=== PATIENT | male | born 1965 | race Caucasian/White ===

== ENCOUNTER 2023-04-22 00:39 | Inpatient (IN) | payer OTHER, SELFPAY ==
[2023-04-21] VITALS (25 sets, daily range): BP systolic 111–188; BP diastolic 80–144; BMI 53.0
[2023-04-21 14:51] LABS: % Basophils 0.8 % (0-2); % Eosinophils 2.2 % (0-6); % Immature Granulocytes 0.3 % (0-0.5); % Lymphocytes 14.9 % (20.5-51.1); % Monocytes 9.9 % (1.7-9.3); % Neutrophils 71.9 % (42.2-75.2); Absolute Basophils 0.1 10^3/uL (0-0.2); Absolute Eosinophils 0.2 10^3/uL (0-0.7); Absolute Lymphocytes 1.1 10^3/uL (1.2-3.4); Absolute Monocytes 0.7 10^3/uL (0.1-0.6); Absolute Neutrophils 5.3 10^3/uL (1.4-6.5); Hematocrit 38.8 % (39.0-52.0); Hemoglobin 13.1 g/dL (13.0-18.0); Mean Corp Hgb Conc. 33.8 g/dL (33.0-37.0); Mean Corpuscular Hgb 30.8 pg (27.0-31.0); Mean Corpuscular Volume 91.1 fL (80.0-94.0); Mean Platelet Volume 9.6 fL (7.4-10.4); Nucleated Red Blood Cells % 0 % (-); Platelet Count 294 10^3/uL (130-400); Red Blood Cell Count 4.26 10^6/uL (4.70-6.10); Red Cell Dist. Width 14.4 % (11.5-14.5); White Blood Cell Count 7.3 10^3/uL (4.8-10.8)
[2023-04-21 15:05] LABS: ALT (SGPT) 22 U/L (0-50); AST (SGOT) 26 U/L (17-59); Albumin 4.1 g/dl (3.5-5.0); Alkaline Phosphatase 225 U/L (38-126); Blood Urea Nitrogen 17 mg/dl (9-20); Calcium 9.1 mg/dl (8.4-10.2); Carbon Dioxide 28 mmol/L (22-30); Chloride 103 mmol/L (98-107); Glucose 117 mg/dl (70-99); Potassium 4.4 mmol/L (3.5-5.1); Sodium 135 mmol/L (135-145); Total Bilirubin 0.7 mg/dl (0.2-1.3); Total Protein 6.8 g/dl (6.3-8.2); eGFR > 60.00
[2023-04-21 15:35] LABS: TSH Reflex To Free T4 2.25 uIU/ml (0.47-4.68)
--- NOTE | 2023-04-21 17:14 | ED.GENMED ---
History of Present Illness
<AMISHA Acosta - Last Filed: 04/21/23 23:19>
General
Chief Complaint: Heart Rate Problem
Source: patient and spouse
Exam Limitations: none
Time Seen by Provider: 04/21/23 17:12
Nursing documentation reviewed up to this point in time: agreed with
Travel History
Have you had any contact with someone who has COVID-19?: No
Do you have any symptoms of coronavirus? Fever > 100 degrees, chills, cough, shortness of breath, sore throat, loss of taste or smell, muscle aches, or headache?: Yes
Symptoms:: SOB
History of Present Illness
History of Present Illness:
Patient is a 58-year-old male with past medical history of hypertension, presents to the ER for evaluation. Patient saw his family doctor yesterday was recommended to come to the ER yesterday. He has felt short of breath with exertion for the past
3-4 weeks. He was found to be in A-fib yesterday. He was not aware that he was in A-fib. He did not feel palpitations.
He denies any chest pain.
He is taking his metoprolol as well as clonidine for hypertension and is on Lasix 20 mg every day.
Patient also complains of a chronic wound to right lower leg. 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
Past History
<AMISHA Acosta - Last Filed: 04/21/23 23:19>
Past History
ED Past Medical History: GERD
ED Past Surgical History: Other
Social History
Tobacco: Non-smoker
Drug: None
Personal:
Living: with family
Employment: Employed
Family History
Family History: Other
Review of Systems
<AMISHA Acosta - Last Filed: 04/21/23 23:19>
Review of Systems
Allergies reviewed?: Yes
Other source history: family
All Other Systems: ROS reviewed and negative except as documented in HPI and ROS
Constitutional: Reports no symptoms; Denies fever, fatigue or chills
EENT: Reports no symptoms
Respiratory: Reports trouble breathing; Denies cough
Cardiac: Reports no symptoms; Denies chest pain, diaphoresis, palpitations or syncope
ABD/GI: Reports no symptoms
: Reports no symptoms
Musculoskeletal: Reports other (open wound to leg )
Skin: Reports no symptoms
Neurological: Reports no symptoms
Psychiatric: Reports no symptoms
Phy Exam
<AMISHA Acosta - Last Filed: 04/21/23 23:19>
General Physical Exam
General Presentation: no apparent distress
General age: appears stated age
General Skin: warm and dry
General Habitus: obese
General Mental: alert
General Hydration: appears well hydrated
Cardiovascular Exam
Cardiovascular Exam: irregularly irregular
Pulmonary Exam
Pulmonary Exam: lungs clear and no respiratory distress
Neurological Exam
Neurological Exam: alert and oriented x3
Musculoskeletal Exam
Musculoskeletal Exam: other (Bilateral lower extremity swelling. Right lateral lower leg with obvious open wound with purulent drainage with surrounding erythema)
Skin Exam
Skin Exam: normal color and warm/dry
Psychiatric Exam
Psychiatric Exam: normal mood/affect
Course
<AMISHA Acosta - Last Filed: 04/21/23 23:19>
Orders/Labs/Results
Orders:
Orders
04/21/23 14:22
Electrocardiogram (*1) Urgent
Reason for Study: Atrial Fibrillation
04/21/23 14:23
EKG- Treatment ONCE
04/21/23 14:40
Complete Blood Count/With Diff Urgent
Comprehensive Metabolic Panel Urgent
TSH Reflex To Free T4 Urgent
04/21/23 17:24
Add On- LAB Urgent
Tests Added?: cardiac BNP
04/21/23 17:28
Diltiazem HCl [Cardizem] 20 mg IV NOW STA
04/21/23 17:30
Diltiazem 125 mg/125 ml Nss [Cardizem] 125 mg in 125 ml IV PER PROTOCOL
Initial dose in mg/hr, then titrate:: 5
Titrate to keep:: Heart rate 80-100 bpm
Titrate by mg/hr:: 5 mg/hr
Frequency of titrations (minutes):: 15
Maximum dose in mg/hr:: 15
04/21/23 17:37
NT-proBNP Urgent
04/21/23 18:54
Lactic Acid Q4H
Comment: CANCEL 2nd LACTIC ACID IF 1st LACTIC ACID IS LESS THAN 2
Blood Culture Q30M
MARIA ISABEL Source: Blood/Venous
Specimen Description:
Blood Culture Q30M
MARIA ISABEL Source: Blood/Venous
Specimen Description:
04/21/23 19:05
Wound Culture [Wound/Abscess/Other Culture] Urgent
MARIA ISABEL Source: Leg
Specimen Description: Right
Date Specimen was Collected: 04/21/23
Time Specimen was Collected: 19:03
04/21/23 21:58
Heparin 4,000 units IV NOW STA
Nursing to Place Non Medication Order As Directed
Physician Order: PTT 6 hours after initial start of Heparin infusion
04/21/23 22:00
Heparin [id number] Units/250 ml 25,000 units in 250 ml IV PER PROTOCOL
Weight to be used for heparin protocol in kilograms (kg):: 177.2
Protocol:: Cardiac Tx/Acute Coronary
PTT Goal Range to be used:: PTT 73 to 111 seconds
Order type:: Initial
INITIAL Infusion Dose (UNITS/KG/hr) & then follow protocol:: 12 units/kg/hr
Infusion Dose in UNITS/hr & then follow protocol (UNITS/hr):: 1,000
INFUSION RATE in mL/hr & then follow protocol (mL/hr):: 10
PTT less than or equal to 64 seconds:: Increase rate by 200 units/hr (+ 2 mL/hr)
PTT 64.1 to 72.9 seconds:: Increase rate by 100 units/hr (+ 1 mL/hr)
PTT 73 to 111 seconds:: Target Range. No change in rate.
PTT 111.1 to 130.9 seconds:: Decrease rate by 100 units/hr (- 1 mL/hr)
PTT 131 to 199.9 seconds:: HOLD for 1 hr. Then decrease rate by 200 units/hr (- 2 mL/hr)
PTT greater than or equal to 200 seconds:: HOLD for 2 hrs & Notify Provider. Then decrease by 200 units/hr (-
2 mL/hr)
Lab follow-up:: Each change, PTT q6h until 2 consecutive are therapeutic. Then PTT
daily.
04/21/23 22:04
PTT Urgent
Comment: Obtain baseline before beginning heparin infusion if not already collected
04/21/23 22:06
Chest [CR Chest - 2 Views ] Urgent
Comment:
Reason For Exam: SOB
04/21/23 22:55
Acetaminophen [Tylenol] 650 mg PO NOW STA
Abnormal Lab Results
04/21/23
14:40
RBC 4.26 L 10^6/uL
(4.70-6.10)
Hct 38.8 L %
(39.0-52.0)
Absolute Lymphs (auto) 1.1 L 10^3/uL
(1.2-3.4)
Absolute Monos (auto) 0.7 H 10^3/uL
(0.1-0.6)
Lymphocytes % 14.9 L %
(20.5-51.1)
Monocytes % 9.9 H %
(1.7-9.3)
Glucose 117 H mg/dl
(70-99)
Alkaline Phosphatase 225 H U/L
(38-126)
04/21/23 14:40
04/21/23 14:40
Vital Signs
Initial and Last Documented VS:
Initial Vital Signs
Temp Pulse Resp BP Pulse Ox
98.4 F 122 18 178/99 93
04/21/23 14:18 04/21/23 14:18 04/21/23 14:18 04/21/23 14:18 04/21/23 14:18
Last Documented Vital Signs
Temp Pulse Resp BP Pulse Ox
98.4 F 122 29 133/86 94
04/21/23 14:18 04/21/23 21:00 04/21/23 21:30 04/21/23 21:30 04/21/23 21:30
Dial Maker consulted with Physician
Dial Maker consulted with physician?: Yes
Name of Physician Consulted: David
<Andrey Hernandez, DO - Last Filed: 04/21/23 18:08>
Orders/Labs/Results
Orders:
Orders
04/21/23 14:22
Electrocardiogram (*1) Urgent
Reason for Study: Atrial Fibrillation
04/21/23 14:23
EKG- Treatment ONCE
04/21/23 14:40
Complete Blood Count/With Diff Urgent
Comprehensive Metabolic Panel Urgent
TSH Reflex To Free T4 Urgent
04/21/23 17:24
Add On- LAB Urgent
Tests Added?: cardiac BNP
04/21/23 17:28
Diltiazem HCl [Cardizem] 20 mg IV NOW STA
04/21/23 17:30
Diltiazem 125 mg/125 ml Nss [Cardizem] 125 mg in 125 ml IV PER PROTOCOL
Initial dose in mg/hr, then titrate:: 5
Titrate to keep:: Heart rate 80-100 bpm
Titrate by mg/hr:: 5 mg/hr
Frequency of titrations (minutes):: 15
Maximum dose in mg/hr:: 15
04/21/23 17:37
NT-proBNP Urgent
04/21/23 18:54
Lactic Acid Q4H
Comment: CANCEL 2nd LACTIC ACID IF 1st LACTIC ACID IS LESS THAN 2
Blood Culture Q30M
MARIA ISABEL Source: Blood/Venous
Specimen Description:
Blood Culture Q30M
MARIA ISABEL Source: Blood/Venous
Specimen Description:
04/21/23 19:05
Wound Culture [Wound/Abscess/Other Culture] Urgent
MARIA ISABEL Source: Leg
Specimen Description: Right
Date Specimen was Collected: 04/21/23
Time Specimen was Collected: 19:03
04/21/23 21:58
Heparin 4,000 units IV NOW STA
Nursing to Place Non Medication Order As Directed
Physician Order: PTT 6 hours after initial start of Heparin infusion
04/21/23 22:00
Heparin [id number] Units/250 ml 25,000 units in 250 ml IV PER PROTOCOL
Weight to be used for heparin protocol in kilograms (kg):: 177.2
Protocol:: Cardiac Tx/Acute Coronary
PTT Goal Range to be used:: PTT 73 to 111 seconds
Order type:: Initial
INITIAL Infusion Dose (UNITS/KG/hr) & then follow protocol:: 12 units/kg/hr
Infusion Dose in UNITS/hr & then follow protocol (UNITS/hr):: 1,000
INFUSION RATE in mL/hr & then follow protocol (mL/hr):: 10
PTT less than or equal to 64 seconds:: Increase rate by 200 units/hr (+ 2 mL/hr)
PTT 64.1 to 72.9 seconds:: Increase rate by 100 units/hr (+ 1 mL/hr)
PTT 73 to 111 seconds:: Target Range. No change in rate.
PTT 111.1 to 130.9 seconds:: Decrease rate by 100 units/hr (- 1 mL/hr)
PTT 131 to 199.9 seconds:: HOLD for 1 hr. Then decrease rate by 200 units/hr (- 2 mL/hr)
PTT greater than or equal to 200 seconds:: HOLD for 2 hrs & Notify Provider. Then decrease by 200 units/hr (-
2 mL/hr)
Lab follow-up:: Each change, PTT q6h until 2 consecutive are therapeutic. Then PTT
daily.
04/21/23 22:04
PTT Urgent
Comment: Obtain baseline before beginning heparin infusion if not already collected
04/21/23 22:06
Chest [CR Chest - 2 Views ] Urgent
Comment:
Reason For Exam: SOB
04/21/23 22:55
Acetaminophen [Tylenol] 650 mg PO NOW STA
Abnormal Lab Results
04/21/23
14:40
RBC 4.26 L 10^6/uL
(4.70-6.10)
Hct 38.8 L %
(39.0-52.0)
Absolute Lymphs (auto) 1.1 L 10^3/uL
(1.2-3.4)
Absolute Monos (auto) 0.7 H 10^3/uL
(0.1-0.6)
Lymphocytes % 14.9 L %
(20.5-51.1)
Monocytes % 9.9 H %
(1.7-9.3)
Glucose 117 H mg/dl
(70-99)
Alkaline Phosphatase 225 H U/L
(38-126)
04/21/23 14:40
04/21/23 14:40
Vital Signs
Initial and Last Documented VS:
Initial Vital Signs
Temp Pulse Resp BP Pulse Ox
98.4 F 122 18 178/99 93
04/21/23 14:18 04/21/23 14:18 04/21/23 14:18 04/21/23 14:18 04/21/23 14:18
Last Documented Vital Signs
Temp Pulse Resp BP Pulse Ox
98.4 F 122 29 133/86 94
04/21/23 14:18 04/21/23 21:00 04/21/23 21:30 04/21/23 21:30 04/21/23 21:30
<AMISHA Acosta - Last Filed: 04/21/23 23:19>
MDM/Problems Addressed
Differential Diagnosis Includes:
Not limited to rapid A-fib, cellulitis, infected wound, PE
MDM/Problems Addressed:
Patient is a 58-year-old morbidly obese male that went to his family doctor's office yesterday for shortness of breath for the past several months was found to be in A-fib. He had no palpitations with this but does admit to feeling short of breath
for the past several months worse with exertion. Patient presented in rapid A-fib. They are in the 120s. Patient was given Cardizem bolus and drip. Patient also admits to having a chronic right lower leg wound however has not been to wound care
in months. On exam patient presents to the ER awake alert mildly hypoxic tachycardic lungs are clear. Patient does a wound with purulent drainage to the right lower leg with mild surrounding erythema. Antibiotics recommended however he refuses
antibiotics. White count is normal at 7.3 he is afebrile and lactic is normal. Blood cultures were ordered. Will hold off on antibiotics as patient refuses. With dyspnea, CAT scan was ordered but patient refuses CAT scan chest x-ray is negative.
normal hemoglobin, nml electrolytes BNP 1480. No chest pain cardiac troponin was not done.
IV heparin was ordered for A-fib unknown exact onset however patient has been short of breath for the past several months. Patient mated to hospital service
Chronic conditions affecting care:
History of chronic right leg wound hypertension patient admits to being noncompliant with wound care in the past noncompliant with medical care
<AMISHA Acosta - Last Filed: 04/21/23 23:19>
*Radiology
Radiology exam reviewed: radiology read reviewed
*Pulse Oximetry
Patient hypoxic: no
*EKG
Comparison EKG: changes noted (afib replaced nsr )
Heart Rate: 137
Rate: tachycardiac
Rhythm: a-fib
Ischemia: non-specific ST changes
*Critical Care Note
Total Time (30-74mins, 75-104mins- exclusive of procedures): Not Applicable
ED Attending Note
<AMISHA Acosta - Last Filed: 04/21/23 23:19>
-
Portions of this chart may have been created with voice recognition software.� Occasional wrong word or��sound alike� substitutions may have occurred due to the inherent limitations of voice recognition software.
<Andrey Hernandez DO - Last Filed: 04/21/23 18:08>
ED Attending Note
Patient seen and examined by attending physician: Yes
I performed the substantive portion of visit, reviewed & personally made and approve the management plan that is documented in note by myself or MEE.: Yes
ED Attending Note:
I have seen and evaluated the patient with a [id number] encounter. I have spoken to the advance practicer provider and involved in the medical history, the physical exam, medical decision making.
Evaluation and management service: agree unless noted differently below.
Results interpretation: agree unless noted differently below.
Focused HPI: 58-year-old male presenting for evaluation of new onset A-fib. It is uncertain how long he has been in A-fib. Patient found to be tachycardic. Patient does admit that he has developed worsening bilateral leg swelling.
Physical exam: Bilateral leg edema. Ulceration to right lateral leg with surrounding cellulitis. Tachycardic and irregular
Medical Decision Making: Will obtain CT to rule out PE. Patient started on Cardizem drip. I discussed antibiotics for the ulceration in his leg but pt not interested
Discharge Plan
Departure
Patient Disposition: Admit
Date of Disposition: 04/21/23
Time of Disposition: 22:15
Admit to: Telemetry
Admit to doctor: hospitalist
Presentation/result/management discussed w/ accepting MD/DO: Hospitalist
Patient with high blood pressure during this ER visit?: Yes
Condition: Fair
Covid-19: Not Applicable
Discharge Problem:
Atrial fibrillation, rapid, Acute dyspnea, right lower leg wound
Prescriptions:
No Action
metoprolol succinate 50 MG tablet extended release 24 hr
50 mg PO DAILY
clonidine HCl 0.1 MG tablet
0.1 mg PO BID Qty: 60 0RF
garlic 100 mg Tablet
100 mg PO DAILY
ondansetron HCl 4 mg tablet
4 mg PO BID PRN (Reason: nausea/vomiting)
cyanocobalamin (vitamin B-12) [Vitamin B-12] 1,000 mcg Tablet
1,000 mcg PO DAILY
thiamine HCl (vitamin B1) [Vitamin B-1] 100 mg Tablet
100 mg PO DAILY
aspirin 81 mg Tablet,Delayed Release (Dr/Ec)
81 mg PO DAILY
acetaminophen 500 mg Tablet
1,500 mg PO HS
triamcinolone acetonide 0.1 % cream
1 applic TOPICAL DAILY
Rx Instructions:
apply to legs
diphenhydramine HCl [Benadryl] 25 mg Capsule
100 mg PO HS
furosemide 20 mg tablet
20 mg PO DAILY
loratadine [Claritin] 10 mg Tablet
10 mg PO DAILY
echinacea 125 mg Tablet
250 mg PO DAILY
Neosporin (mrv-tjo-mipqe) 3.5-400-5,000 [id number] Ointment In Packet
1 applic TOPICAL DAILY
Rx Instructions:
apply to wound
krill oil 500 mg Capsule
500 mg PO DAILY
melatonin 10 mg Tablet
20 mg PO HS
mupirocin-lidocaine 2-2 % Ointment
1 ea TOPICAL BID
Rx Instructions:
apply to legs
Beet Root
1 tab PO DAILY
Leg Cramp Relief
1 tab PO HS
Sleep Aid
2 tab PO HS
Referrals:
Miller Lu MD [Family Provider] -
Interventions
Interventions:
*Risk Screen - Suicide Last Done: 04/21/23 14:18
*General Assessment Last Done: 04/21/23 14:18
*Neglect/Abuse Screening Last Done: 04/21/23 14:18
ED- Fall Risk Assessment Last Done: 04/21/23 19:17
ED- Cardiac Assessment Last Done: 04/21/23 19:17
ED- Pulmonary Assessment Last Done: 04/21/23 19:17
[2023-04-21] MEDS: CARDIZEM 125 IV (18:01)
[2023-04-21] MEDS: CARDIZEM 20 MG IV (18:01)
[2023-04-21 18:21] LABS: NT-proBNP 1480 pg/ml
[2023-04-21 19:35] LABS: Lactic Acid 0.9 mmol/L (0.7-2.0)
[2023-04-21 22:21] LABS: APTT 31.8 Sec (23.4-35.0)
[2023-04-21] MEDS: TYLENOL 650 MG PO (23:06)
[2023-04-21] MEDS: HEPARIN 4000 UNITS IV (23:14)
[2023-04-21] MEDS: HEPARIN 25000 UNITS/250 ML IV (23:24)
--- NOTE | 2023-04-21 23:54 | HPS.HSE ---
Addendum entered and electronically signed by Venancio Baires DO 04/22/23 01:33:
Patient seen and examined independently. Agree with findings and plan as set forth by Nessa Coy PA-C.
Patient is a 58y M with PMH significant for morbid obesity and chronic RLE wound who presents to ED complaining of worsening SOB/ ECHEVARRIA over the past 3-4 weeks. Patient was noted on outpatient EKG to be in A-Fib and was advised to present to the
ED. He denies chest pain or palpitations. Duration / onset of A-Fib is unclear. Patient reports history of significant orthopnea, ECHEVARRIA, etc. He takes multiple sleep aids - usually without benefit. He is in the process of being evaluated for
weight loss strategies.
Ass:
New A-Fib with Rapid Ventricular Response - Unclear Onset
Acute HF - Unknown Type
Morbid Obesity due to excess calories
Chronic RLE Wound
RLE Cellulitis
Benign Hypertension
LINA Suspect
Plan:
Admit for further evaluation and treatment.
Suspect longstanding and untreated LINA +/- OHV are contributing to multiple medical issues.
Continue IV Cardizem for rate control.
IV heparin started in the ED.
Cardio evaluation for additional recommendations.
Update Echo.
PO abx started for cellulitis associated with chronic RLE wound.
Wound Care eval for local care recommendations.
Patient would benefit from formal PSG as an outpatient and probable PAP therapy.
He would benefit from weight loss program including medications and / or surgical options given morbid obesity and multiple associated medical issues.
Original Note:
Family Physician
-
Family Physician: Miller Lu
Chief Complaint
-
Shortness of Breath
History of Present Illness
Patient is a 58 y/o male with PMH of hypertension and morbid obesity who presents complaining of worsening SOB x 3-4 weeks. He saw his PCP yesterday who performed an EKG which revealed atrial fibrillation. PCP recommended he report the ED. Patient
reports dyspnea on exertion which sometimes occurs after shifting in a chair while sitting. He admits to orthopnea and PND for the past 2-3 weeks. His PCP prescribed albuterol for suspected asthma, however patient reports that it is ineffective in
treated his SOB. He says he bought oxygen canisters meant for hikers which he uses when experiencing PND. He also admits to persistent fatigue for the past 1.5 months. He has not been sleeping well and falls asleep easily during the day. Patient's
at bedside says he snores. Patient reports that PCP ordered polysomnography which he has yet to complete. He denies chest pain, palpitations, fever, and chills. Patient has chronic venous ulcer of right lower extremity which he says has been
weeping and is now pruritic.
Medical History
Past Medical History
Past Medical History: Reports Other
Additional Past Medical History:
Essential Hypertension
Morbid Obesity
Suspected Sleep Apnea
Chronic Lower Extremity Lymphedema
Chronic Lower Extremity Wounds
Past Surgical History: Reports Other
Social History
Tobacco: Non-smoker
Alcohol: None
Personal:
Living: With Family
Family History
Family History: Not pertinent
Allergies / Home Medications
Allergies reflects when Allergies were last updated in [facility].
Home Medications with original date entered in [facility]
Allergy/Medication List:
Allergies
Allergy/AdvReac Type Severity Reaction Status Date / Time
latex Allergy Anaphylaxis Verified 04/21/23 14:17
Penicillins Allergy Hives Verified 04/21/23 23:18
Home Medications
metoprolol succinate 50 mg tablet,extended release 24 hr 50 mg PO DAILY 05/23/18
clonidine HCl 0.1 mg tablet 0.1 mg PO BID #60 tabs 03/03/21
Beet Root 1 tab PO DAILY 04/21/23
Echinacea purpurea extract 125 mg tablet (echinacea) 250 mg PO DAILY 04/21/23
Leg Cramp Relief 1 tab PO HS 04/21/23
Sleep Aid 2 tab PO HS 04/21/23
acetaminophen 500 mg tablet 1,500 mg PO HS 04/21/23
aspirin 81 mg tablet,delayed release 81 mg PO DAILY 04/21/23
cyanocobalamin (vitamin B-12) 1,000 mcg tablet (Vitamin B-12) 1,000 mcg PO DAILY 04/21/23
diphenhydramine HCl 25 mg capsule (Benadryl) 100 mg PO HS 04/21/23
furosemide 20 mg tablet 20 mg PO DAILY 04/21/23
garlic 100 mg tablet 100 mg PO DAILY 04/21/23
krill oil 500 mg capsule 500 mg PO DAILY 04/21/23
loratadine 10 mg tablet (Claritin) 10 mg PO DAILY 04/21/23
melatonin 10 mg tablet 20 mg PO HS 04/21/23
mupirocin 2 %-lidocaine 2 % topical ointment 1 ea topical BID 04/21/23
neomycin-bacitracn Zn-polymyxn 3.5 mg-400 unit-5,000 unit top oint pkt (Neosporin([id number])) 1 applic topical DAILY 04/21/23
ondansetron HCl 4 mg tablet 4 mg PO BID PRN nausea/vomiting 04/21/23
thiamine HCl (vitamin B1) 100 mg tablet (Vitamin B-1) 100 mg PO DAILY 04/21/23
triamcinolone acetonide 0.1 % topical cream 1 applic topical DAILY 04/21/23
Review of Systems
-
A 12 point ROS was completed and negative except as noted: Yes
Constitutional: Denies Fever or Chills
Respiratory: Reports See HPI
Cardiac: Reports See HPI
Physical Exam
Vital Signs
Vital Signs
Temp Pulse Resp BP Pulse Ox
98.4 F 105 19 111/80 94
04/21/23 14:18 04/21/23 23:30 04/21/23 23:30 04/21/23 23:30 04/21/23 23:30
Physical Exam
General: Comfortable and Conversant
HEENT: Anicteric and Moist mucous membranes
Respiratory: Wheezes (Few scattered) and Non Labored Respirations
Cardiac: S1/S2, Irregular Rhythm and Tachycardia
GI: Soft, Non Tender and Other (Protuberant)
Rectal: Deferred by Provider
Musculoskeletal: No Clubbing, No Cyanosis and Other (+3 pitting edema bilateral lower ext)
Skin: Warm, Dry and Other (Small chronic wound; Mild erythema with increased warmth to touch of RLE)
Neuro: Awake, Alert, Oriented and Nonfocal/grossly intact
Psych: Calm
Laboratory Results
-
04/21/23 14:40
04/21/23 14:40
Laboratory Results
APTT 31.8 Sec (23.4-35.0) 04/21/23 22:04
Lactic Acid Cancelled 04/21/23 22:30
Total Bilirubin 0.7 mg/dl (0.2-1.3) 04/21/23 14:40
AST 26 U/L (17-59) 04/21/23 14:40
ALT 22 U/L (0-50) 04/21/23 14:40
Alkaline Phosphatase 225 U/L (38-126) H 04/21/23 14:40
Data Reviewed
-
Diagnostic Radiology: Report Reviewed by me
Lab Data: Labs Reviewed by me
Old Records: Reviewed
Impression/Plan
-
Atrial Fibrillation with Rapid Ventricular Response
-Consult Cardiology
-Continue Cardizem drip
-Continue metoprolol as prior to admission
-Continue Heparin Drip as started by ED
Acute Heart Failure, suspect preserved EF
-Echo April 2021: Normal regional wall motion. EF 65%
-Check Echo
-Continue Lasix
-Monitor Is&Os and Daily Weights
Right Lower Extremity Cellulitis
-Continue Keflex
Essential Hypertension
-Continue clonidine and metoprolol
Chronic Lower Ext Wounds
-Consult Wound Care
Morbid Obesity
-Affects all aspects of care
-Patient is interested in a referral for a weight loss clinic
Suspected Obstructive Sleep Apnea
-Patient would benefit from sleep study as outpatient
-Monitor nocturnal oxygen
DVT proph: Heparin Drip
Code Status: Full Code
[2023-04-22] VITALS (16 sets, daily range): BP systolic 93–165; BP diastolic 70–121; BMI 53.1
[2023-04-22] MEDS: ULTRAM 25 MG PO ×2 (02:47→22:15)
[2023-04-22] MEDS: CARDIZEM 125 IV (03:45)
--- NOTE | 2023-04-22 04:01 | PTCARENOTE ---
Rec'd pt. from ED into room 2245 AAOx3, A-fib on the monitor (rate 90's-120's, Cardizem gtt running at 15mg/hr). Pt. able to transfer from stretcher to bed with minimal assist, moderate ECHEVARRIA assessed, RA pulse ox low 90's. Expiratory wheeze
audible, crackles auscultated right base. Pt. anxious regarding work of breathing, 2L O2 placed for comfort with pulse ox increasing to 96%. Wound care provided to right lower lateral leg chronic wound; WOC consult entered. Medicated for level 5
out of 10 pain at wound site with tramadol with good results obtained. Heparin gtt infusing as ordered. Pt. currently resting quietly.
[2023-04-22 05:14] LABS: APTT 37.2 Sec (23.4-35.0)
[2023-04-22 05:27] LABS: Blood Urea Nitrogen 16 mg/dl (9-20); Calcium 9.2 mg/dl (8.4-10.2); Carbon Dioxide 28 mmol/L (22-30); Chloride 102 mmol/L (98-107); Estimated Creatinine Clearance > 125 ml/min; Glucose 120 mg/dl (70-99); HDL Cholesterol 66 mg/dl; LDL Cholesterol, Calculated 50 mg/dl; Potassium 3.9 mmol/L (3.5-5.1); Sodium 137 mmol/L (135-145); Total Cholesterol 144 mg/dl (50-199); Triglyceride 141 mg/dl (10-149); Very Low Density Lipoprotein 28 mg/dl (0-30); eGFR > 60.00
[2023-04-22] MEDS: TYLENOL 650 MG PO (08:18)
[2023-04-22] MEDS: TOPROL XL 50 MG PO (08:19)
[2023-04-22] MEDS: CATAPRES 0.100000000000000006 MG PO ×2 (08:19→20:19)
--- NOTE | 2023-04-22 09:04 | CON.CAR ---
Consultation
Consultation Request
Date/Time Consultation Requested: 04/22/2023, 7am
Date/Time Consultation Performed: 04/22/2023, 8am
Requesting Provider: Dequan
Performing Provider: Isa
Reason for Consultation: New A fib
Medical History
-
Chief Complaint: SOB
History of Present Illness:
58 yo male with PMH of chronic HFPEF, HTN, venous insufficiency, morbid obesity (BMI >50) admitted with SOB, edema, weight gain.
He denies chest pain.
Findings include new A fib with RVR, acute on chronic HFPEF, and cellulitis.
Past Medical History
Past Medical History: CHF (chronic HFPEF), HTN and Other (venous insufficiency, morbid obesity)
Past Surgical History: Tonsilectomy
Social History
Tobacco: Non-Smoker
Family History
Family History: Early CAD (none)
Allergies / Home Medications
Allergy/AdvReac Type Severity Reaction Status Date / Time
latex Allergy Anaphylaxis Verified 04/21/23 14:17
Penicillins Allergy Hives Verified 04/21/23 23:18
Medication Instructions Recorded Confirmed Type
metoprolol succinate 50 mg 50 mg PO DAILY 05/23/18 04/21/23 History
tablet,extended release 24 hr
clonidine HCl 0.1 mg tablet 0.1 mg PO BID #60 tabs 03/03/21 04/21/23 Rx
Beet Root 1 tab PO DAILY 04/21/23 04/21/23 History
Echinacea purpurea extract 125 mg 250 mg PO DAILY 04/21/23 04/21/23 History
tablet (echinacea)
Leg Cramp Relief 1 tab PO HS 04/21/23 04/21/23 History
Sleep Aid 2 tab PO HS 04/21/23 04/21/23 History
acetaminophen 500 mg tablet 1,500 mg PO HS 04/21/23 04/21/23 History
aspirin 81 mg tablet,delayed 81 mg PO DAILY 04/21/23 04/21/23 History
release
cyanocobalamin (vitamin B-12) 1,000 mcg PO DAILY 04/21/23 04/21/23 History
1,000 mcg tablet (Vitamin B-12)
diphenhydramine HCl 25 mg capsule 100 mg PO HS 04/21/23 04/21/23 History
(Benadryl)
furosemide 20 mg tablet 20 mg PO DAILY 04/21/23 04/21/23 History
garlic 100 mg tablet 100 mg PO DAILY 04/21/23 04/21/23 History
krill oil 500 mg capsule 500 mg PO DAILY 04/21/23 04/21/23 History
loratadine 10 mg tablet (Claritin) 10 mg PO DAILY 04/21/23 04/21/23 History
melatonin 10 mg tablet 20 mg PO HS 04/21/23 04/21/23 History
mupirocin 2 %-lidocaine 2 % 1 ea topical BID 04/21/23 04/21/23 History
topical ointment
neomycin-bacitracn Zn-polymyxn 3.5 1 applic topical DAILY 04/21/23 04/21/23 History
mg-400 unit-5,000 unit top oint
pkt (Neosporin([id number]))
ondansetron HCl 4 mg tablet 4 mg PO BID PRN nausea/vomiting 04/21/23 04/21/23 History
thiamine HCl (vitamin B1) 100 mg 100 mg PO DAILY 04/21/23 04/21/23 History
tablet (Vitamin B-1)
triamcinolone acetonide 0.1 % 1 applic topical DAILY 04/21/23 04/21/23 History
topical cream
Review of Systems
-
History Source: Patient
Constitutional: Fatigue and Sleep Disturbance
Respiratory: Trouble Breathing
Musculoskeletal: Edema
Skin: Rash
Physical Exam
Vital Signs
Temp Pulse Resp BP Pulse Ox
97.8 F 95 22 137/102 96
04/22/23 07:17 04/22/23 05:00 04/22/23 07:17 04/22/23 03:41 04/22/23 07:17
Lab Results
04/21/23 14:40
04/22/23 04:50
Csm-L-Nfxlvvlmcqh Pept 1480 pg/ml 04/21/23 17:37
Physical Exam
General: Well Developed and Well Nourished
HEENT: Normocephalic, Anicteric and Moist Mucous Membranes
Respiratory: Clear and Crackles (bilateral bases)
Cardiac: S1/S2 (normal), Irregular Rhythm, Murmur (none) and Peripheral Edema (2+ LE edema)
Breast: Deferred by me
GI: Soft, Non Tender and Non Distended
Rectal: Deferred by Provider
Musculoskeletal: No Clubbing, No Cyanosis and Edema (2+ LE)
Skin: Rash (LLE)
Neuro: Awake and Oriented
Psych: Calm
Impression / Plan
-
58 yo male with PMH of chronic HFPEF, HTN, venous insufficiency, morbid obesity (BMI >50) admitted with SOB, edema, weight gain.
Findings include new A fib with RVR, acute on chronic HFPEF, and cellulitis.
# New A fib with RVR
-stop diltiazem drip
-titrate beta myke: coreg 25mg bid
-CHADS2-VASC = 2. Eliquis 5mg bid for OAC
-eventual eval for DCCV after 3-4 weeks OAC
# Acute on chronic HFPEF, severe
-home lasix is 20mg daily
-increase lasix to 40mg IV bid
-close monitoring of labs and tele
-case mgmt consult for Farxiga: start at 10mg daily
-echo
# HTN
-uncontrolled: change Toprol to coreg 25mg bid, and trend BP
-diurese
-continue home clonidine 0.1mg bid
#Celluitis
-Abx per hospitalist
# Morbid obesity
Data Reviewed
-
EKG: Tracing Personally Visualized and interpreted (A fib with RVR)
Labs: Labs Reviewed by me
Old Records: Reviewed
[2023-04-22 09:32] LABS: Glycohemoglobin (HgbA1c) 6.2 % (4.0-5.6)
[2023-04-22] MEDS: KEFLEX 1000 MG PO (09:39)
[2023-04-22] MEDS: FARXIGA 10 MG PO (09:40)
[2023-04-22] MEDS: COREG 25 MG PO ×2 (09:40→20:19)
[2023-04-22] MEDS: ELIQUIS 5 MG PO ×2 (09:41→20:19)
[2023-04-22] MEDS: LASIX 40 MG IV ×2 (09:41→16:15)
--- NOTE | 2023-04-22 10:01 | CM ---
Reviewed chart. Met with Mr. Herrera to review discharge plans. He states prior to admission he resides with his spouse in a one story home with one step to enter. He states prior to admission he was independent with ambulation and adls. He states
he does not have any DME in the home. He states he has a prescription plan and uses [facility]. Telephone call to [facility] to check on co-pay for Farxiga 10 mg po daily and Eliquis 5 mg po bid. His co-pay for Farxiga is $15.00 a month. The
co-pay for Eliquis 5 mg po bid is $40.00 a month. He can use the free coupon for Farxiga and the $10.00 coupon for Eliquis. Placed both coupons in his red discharge folder. Medical work-up in progress. The discharge plan is to return home with
his spouse when medically stable.
--- NOTE | 2023-04-22 11:17 | CARDSERVLU ---
Echocardiogram with [facility] completed after protocol screening completed. Allergies verified.
Patent IV site: _Right arm accessory cephalic 20 G PC____
IV site flushed with 0.9% NaCl pre and post administration.
Diluted bolus method utilized to enhance visualization of ventricular mishra.
Total volume given: __4__ mL
Patient tolerated all procedures well without complications.
--- NOTE | 2023-04-22 12:36 | WOUNDNOTE ---
[facility] RN note: Patient admitted with worsening SOB/HF
See H&P for complete history.
PMH: Morbid obesity, A-fib, CHF, HTN, right LE wounds
Wound Location and type/assessment: Patient admitted with: Right LE venous wound. Reviewed chart and met with patient. He stopped follow up for wound approx 1 year ago (was seen at [facility]). Patient said he could not follow up due to work schedule.
Wound has moderate to large amount of sloughy yellow and blush green drainage. Mild odor noted. Wound surrounded by erythema. Patient states he does not wear compression. This is also confirmed by notes from [facility]. Today patient also refused
compression due to LE pain. + audible pulses with doppler. Heels and sacrum intact. Patient has fair mobility.
Appetite: Good
Pressure redistribution devices in place: Versa Care Accumax.
Plan: Pics of wound sent to hospitalist. Possible surgical consult at discretion of hospitalist. Will start with cleaning and packing wound with 1/4 strength Dakins BID as there is a moderate amount of drainage. Will continue to follow up on use of
compression. Patient not sure he will follow up at [facility] due to schedule. RN Mireille updated and present during assessment. Will confirm orders with hospitalist
Updated care plan and will follow as needed.
Note to case management of equipment requested for discharge:
Recommend follow up at wound care center upon discharge.
--- NOTE | 2023-04-22 13:26 | WOUNDNOTE ---
[facility] RN note: Patient admitted with worsening SOB/HF
See H&P for complete history.
PMH: Morbid obesity, A-fib, CHF, HTN, right LE wounds
Wound Location and type/assessment: Patient admitted with: Right LE venous wound. Reviewed chart and met with patient. He stopped follow up for wound approx 1 year ago (was seen at [facility]). Patient said he could not follow up due to work schedule.
Per chart review, PCP has been prescribing Bactorban ointment and Lidocaine cream. Patient cannot recall past details of venous or arterial studies. Wound has moderate to large amount of sloughy yellow and blush green drainage. Mild odor noted.
Wound surrounded by erythema. Patient states he does not wear compression. This is also confirmed by notes from [facility]. Today patient also refused compression due to LE pain. + audible pulses with doppler. Heels and sacrum intact. Patient has fair
mobility.
Appetite: Good
Pressure redistribution devices in place: Versa Care Accumax.
Plan: Pics of wound sent to hospitalist. Possible surgical consult at discretion of hospitalist. Will start with cleaning and packing wound with 1/4 strength Dakins BID as there is a moderate amount of drainage. Will continue to follow up on use of
compression. Patient not sure he will follow up at [facility] due to schedule. RN Mireille updated and present during assessment. Will confirm orders with hospitalist
Updated care plan and will follow as needed.
Note to case management of equipment requested for discharge:
Recommend follow up at wound care center upon discharge.
--- NOTE | 2023-04-22 13:34 | W.PN.HOSP.TC ---
Today's Communication/Plan
-
see outlined plan
Assessment / Plan
Assessment / Plan
Assessment:
Atrial Fibrillation with Rapid Ventricular Response
- CBC Cards following
- s/p Cardizem drip
- titrating Coreg
- started Eliquis for CHADS2-VASC = 2
- OP DCCV in 4 weeks
- Echo: pending
Acute HFpEF
- continue IV Lasix - requires intensive monitoring of I/OS, weights
- Echo: pending
Right Lower Extremity Cellulitis related to RLE chronic venous stasis wound
- previously saw [facility]
- follow wound care recs
- vascular consult
- Venous and Arterial US studies ordered
- continue Keflex 500mg QID; intolerant of 1000 mg capsules due to nausea
Essential Hypertension
- continue clonidine and metoprolol
Morbid Obesity
- affects all aspects of care
- patient is interested in a referral for a weight loss clinic
Suspected Obstructive Sleep Apnea
- Patient would benefit from sleep study as outpatient
- Monitor nocturnal oxygen
�
DVT ppx: Eliquis
Code Status: Full Code
Anticipated Discharge: > 48 hours
Subjective/Interval History
-
Date of Service: April 22, 2023
no current complaints
Objective Data
-
Labs:
Laboratory Results
04/22/23 04/22/23
04:50 11:35
APTT 37.2 H Pending
Sodium 137
Potassium 3.9
Chloride 102
Carbon Dioxide 28
BUN 16
Creatinine 0.6 L
Glucose 120 H
Calcium 9.2
Vital Signs:
Vital Signs
Temp Pulse Resp BP Pulse Ox
97.5 F 90 20 148/87 96
04/22/23 11:41 04/22/23 11:00 04/22/23 11:41 04/22/23 09:54 04/22/23 11:41
I&O
04/21/23 04/22/23 04/23/23
06:59 06:59 06:59
Intake Total 120 / 120
Output Total 200 / 200
Balance -80 / -80
Physical Exam
-
General: No Apparent Distress
HEENT: Normocephalic and Atraumatic
Respiratory: Negative Wheezes or Rales
Cardiac: Irregular Rhythm
GI: Soft
Genito-urinary: No Costovertebral Tender
Musculoskeletal: Edema, Right Lower Extrem, Edema, Left Lower Extrem and Other (RLE venous stasis wound)
Neuro: AO x 3
Psych: Calm
Data Reviewed
-
Total Time Spent with Patient (in minutes): 51
Labs: Labs Reviewed by me
--- NOTE | 2023-04-22 14:43 | CON.VAS ---
Consultation
Consultation Request
Date/Time Consultation Performed: 04/22/23 1600
Requesting Provider: Hospitalist
Performing Provider: Erika Jesus NP-C for Parker Dunlap MD
Reason for Consultation: Right lower extremity nonhealing calf wound
Medical History
-
Chief Complaint: Right lower extremity nonhealing Wound
History of Present Illness:
This is a 58-year-old male patient admitted with shortness of breath and new onset atrial fibrillation. As part of workup it was noted that he has has a chronic right lower extremity wound. He endorses history of roughly 6 to possibly 8 years of
attempting to heal right lower extremity right calf wound. 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 He did previously follow-up with the wound care center for a year or 2 but was lost to follow-up.
During this timeframe he also sought treatment at a vein center for possible endovenous ablation. He was offered right great saphenous vein ablation, but for what ever reason had not gone through with the procedure. He also has not been compliant
with compression. He denies any prior history of arterial revascularization procedures. Denies any prior venous procedures. Denies any history of DVTs. Cardiovascular risk factors otherwise negative. Denies tobacco use. He does have morbid
obesity. He reports that wound was progressing very well, until he developed shortness of breath and increased swelling roughly 2 to 3 weeks ago, he believes is attributed to his increased pain at right lower extremity. Currently comfortable and
offers no complaints.
Past Medical History
Past Medical History: CHF, HTN and Other (Morbid obesity, venous insufficiency)
Past Surgical History: Tonsilectomy
Allergies / Home Medications
Allergy/AdvReac Type Severity Reaction Status Date / Time
latex Allergy Anaphylaxis Verified 04/21/23 14:17
Penicillins Allergy Hives Verified 04/21/23 23:18
Medication Instructions Recorded Confirmed Type
metoprolol succinate 50 mg 50 mg PO DAILY 05/23/18 04/21/23 History
tablet,extended release 24 hr
clonidine HCl 0.1 mg tablet 0.1 mg PO BID #60 tabs 03/03/21 04/21/23 Rx
Beet Root 1 tab PO DAILY 04/21/23 04/21/23 History
Echinacea purpurea extract 125 mg 250 mg PO DAILY 04/21/23 04/21/23 History
tablet (echinacea)
Leg Cramp Relief 1 tab PO HS 04/21/23 04/21/23 History
Sleep Aid 2 tab PO HS 04/21/23 04/21/23 History
acetaminophen 500 mg tablet 1,500 mg PO HS 04/21/23 04/21/23 History
aspirin 81 mg tablet,delayed 81 mg PO DAILY 04/21/23 04/21/23 History
release
cyanocobalamin (vitamin B-12) 1,000 mcg PO DAILY 04/21/23 04/21/23 History
1,000 mcg tablet (Vitamin B-12)
diphenhydramine HCl 25 mg capsule 100 mg PO HS 04/21/23 04/21/23 History
(Benadryl)
furosemide 20 mg tablet 20 mg PO DAILY 04/21/23 04/21/23 History
garlic 100 mg tablet 100 mg PO DAILY 04/21/23 04/21/23 History
krill oil 500 mg capsule 500 mg PO DAILY 04/21/23 04/21/23 History
loratadine 10 mg tablet (Claritin) 10 mg PO DAILY 04/21/23 04/21/23 History
melatonin 10 mg tablet 20 mg PO HS 04/21/23 04/21/23 History
mupirocin 2 %-lidocaine 2 % 1 ea topical BID 04/21/23 04/21/23 History
topical ointment
neomycin-bacitracn Zn-polymyxn 3.5 1 applic topical DAILY 04/21/23 04/21/23 History
mg-400 unit-5,000 unit top oint
pkt (Neosporin([id number]))
ondansetron HCl 4 mg tablet 4 mg PO BID PRN nausea/vomiting 04/21/23 04/21/23 History
thiamine HCl (vitamin B1) 100 mg 100 mg PO DAILY 04/21/23 04/21/23 History
tablet (Vitamin B-1)
triamcinolone acetonide 0.1 % 1 applic topical DAILY 04/21/23 04/21/23 History
topical cream
Review of Systems
-
History Source: Patient
Constitutional: Reports No Symptoms
EENT: Reports No Symptoms
Respiratory: Reports Other (Shortness of breath and dyspnea on exertion)
Cardiac: Reports No Symptoms
Vascular: Denies Leg Pain / Claudication, Numbness or Tingling
Abdomen/GI: Reports No Symptoms
: Reports No Symptoms
Musculoskeletal: Reports Edema
Skin: Reports Other (Chronic 5+ year wound)
Neurological: Reports No Symptoms
Physical Exam
Vital Signs
Temp Pulse Resp BP Pulse Ox
97.5 F 90 20 148/87 96
04/22/23 11:41 04/22/23 11:00 04/22/23 11:41 04/22/23 09:54 04/22/23 11:41
Lab Results
04/21/23 14:40
04/22/23 04:50
Nfy-C-Ohxjwtdwceg Pept 1480 pg/ml 04/21/23 17:37
Physical Exam
General: Well Nourished, No Apparent Distress and Comfortable
HEENT: Normocephalic, Anicteric and Atraumatic
Respiratory: Non Labored Respirations
Cardiac: Negative JVD
GI: Soft, Non Tender and Other (Rotund)
Musculoskeletal: Edema (+3 pitting edema bilateral lower EXTR)
Skin: Warm and Other (He has indurated patch of raised erythematous skin on the anterior distal calf/ankle area. His wound is in this vicinity. The wound is a clean granulating wound. There is a moderate depth to it likely about 2.5 cm in depth.
Somewhat ovoid likely measuring about 2 to 2.5 cm by about 1.5 cm.)
Neuro: AO x 3
Pulses: Bilateral Femoral: +2, Bilateral Dorsalis Pedis: +2 and Bilateral Posterior Tibial: +2
Assessment / Plan
-
Assessment: 50-year-old male with evidence of venous insufficiency demonstrated by ultrasound and insufficiency of both greater saphenous veins as well as the left anterior accessory saphenous vein, likely contributing to nonhealing right lower
extremity wound. Chronic right calf ulceration with surrounding inflammatory plaque like raised reddened skin.
Plan:
Though the wound could be venous insufficiency related, he does have extensive lymphedema as well. In addition the wound itself appears to be more of a deep crater rather than a typical shallow venous insufficiency related wound. Not exactly
clear but could be a dermatologic issue such as an inflammatory condition (pyoderma gangrenosum or other). Regardless nothing further to offer from a vascular surgical perspective. Recommend follow-up in the wound care center (consideration for
biopsy of the wound), follow-up in the vein center. Recommend compliance with compression, would wrap to base of toes to upper thigh as tolerated with mild compression
[2023-04-22] MEDS: KEFLEX 500 MG PO ×2 (15:00→18:45)
[2023-04-22] MEDS: KEFLEX PO ×2 (15:01→22:12)
[2023-04-22] MEDS: DAKIN'S SOLUTION 0.125% 1/4 STRENGTH 1 ML TOPICAL (15:03)
[2023-04-22] MEDS: PROTONIX 40 MG PO (15:05)
--- NOTE | 2023-04-22 16:16 | W.PN.UPDATE ---
Update Note
Progress Note Update
Seen and examined in conjunction with [employer]. Full consultation to follow. 58-year-old male admitted with shortness of breath/atrial fibrillation. Has chronic right lower extremity wound. Had been seen a couple years ago in the wound care center,
and had undergone evaluation at the vein center for possible endovenous ablation. He was offered right great saphenous vein ablation, but for what ever reason had not gone through with the procedure. He also has not been compliant with
compression. He has not seen the wound care center for a year or 2 now. Patient notes this wound has been chronic for several years now. He thinks it initiated from an injury a tree branch or something grazed against it. He denies any prior
history of arterial revascularization procedures. Denies any prior venous procedures. Denies any history of DVTs. Cardiovascular risk factors otherwise negative. Denies tobacco use. He does have morbid obesity.
On exam/ He is awake and alert. He is in no acute distress. Breathing currently is unlabored. 2+ upper extremity radial pulses palpable bilaterally. Abdomen is soft, obese. Feet are warm with easily palpable 2+ DP pulses. Diffuse edema
throughout bilateral lower extremities. On the anterior/anterior medial aspect of the right calf superficially there are some visible varicose veins. He does have significant bilateral calf edema, more reminiscent of lymphedema. He has indurated
patch of raised erythematous skin on the anterior distal calf/ankle area. His wound is in this vicinity. The wound is a clean granulating wound. There is a moderate depth to it likely about 2.5 cm in depth. Somewhat ovoid likely measuring about
2 to 2.5 cm by about 1.5 cm.
I reviewed imaging the patient had completed in 2021. ABIs and TBI's are within normal limits. Venous insufficiency ultrasound demonstrates insufficiency of both greater saphenous veins as well as the left anterior accessory saphenous vein.
Plan/ Chronic right calf ulceration with surrounding inflammatory plaque like raised reddened skin. Though certainly this could be somewhat venous insufficiency related, he does have extensive lymphedema as well. In addition the wound itself
appears to be more of a deep crater rather than a typical shallow venous insufficiency related wound. I am not convinced that this is a venous insufficiency wound. Does not appear to be related to arterial insufficiency (excellent granulating
base, no evidence of arterial insufficiency on exam or prior noninvasive studies). Not exactly clear but could this be a dermatologic issue such as an inflammatory condition (pyoderma gangrenosum or other). Regardless nothing further I would offer
from a vascular surgical perspective. Recommend follow-up in the wound care center (consideration for biopsy of the wound), follow-up in the vein center. Recommend compliance with compression.
[2023-04-22] MEDS: DAKIN'S SOLUTION 0.125% 1/4 STRENGTH TOPICAL (20:19)
[2023-04-22] MEDS: MELATONIN 10 MG PO (22:19)
[2023-04-23] VITALS (7 sets, daily range): BP systolic 110–134; BP diastolic 66–95; BMI 52.3
[2023-04-23 04:11] LABS: Hematocrit 37.4 % (39.0-52.0); Hemoglobin 12.4 g/dL (13.0-18.0); Mean Corp Hgb Conc. 33.2 g/dL (33.0-37.0); Mean Corpuscular Hgb 30.2 pg (27.0-31.0); Mean Corpuscular Volume 91.2 fL (80.0-94.0); Mean Platelet Volume 9.6 fL (7.4-10.4); Platelet Count 286 10^3/uL (130-400); Red Cell Dist. Width 14.2 % (11.5-14.5); White Blood Cell Count 8.3 10^3/uL (4.8-10.8)
--- NOTE | 2023-04-23 04:16 | PTCARENOTE ---
Pt. noted to have short apneic periods while sleeping. RA pulse ox tidals down to high 80's then goes back up to low 90's with inspiration. 2L O2 placed with sats staying in the low 90's. A-fib on the monitor, 90's-low 100's at rest.
[2023-04-23 04:50] LABS: Blood Urea Nitrogen 19 mg/dl (9-20); Calcium 9.1 mg/dl (8.4-10.2); Carbon Dioxide 31 mmol/L (22-30); Chloride 100 mmol/L (98-107); Estimated Creatinine Clearance > 125 ml/min; Glucose 111 mg/dl (70-99); Potassium 4.1 mmol/L (3.5-5.1); Sodium 135 mmol/L (135-145); eGFR > 60.00
[2023-04-23] MEDS: TYLENOL 650 MG PO ×2 (07:24→17:36)
--- NOTE | 2023-04-23 08:28 | W.PN.CD ---
Today's Communication / Plan
-
continue lasix 40mg IV bid
add diltiazem 120mg daily for better rate control
Impression / Plan
-
58 yo male with PMH of chronic HFPEF, HTN, venous insufficiency, morbid obesity (BMI >50) admitted with SOB, edema, weight gain.
Findings include new A fib with RVR, acute on chronic HFPEF, and cellulitis.
# New A fib with RVR
-rate: coreg 25mg bid. Add diltiazem 120mg daily.
-CHADS2-VASC = 2. Eliquis 5mg bid for OAC
-eventual eval for outpatient DCCV after 3-4 weeks OAC
# Acute on chronic HFPEF, severe
-echo : EF 55-60%, no sig valve disease
-home lasix is 20mg daily
-continue lasix 40mg IV bid
-close monitoring of labs and tele
-continue Farxiga 10mg daily
# HTN: improved
-uncontrolled on admission: changed Toprol to coreg 25mg bid, and added diltiazem for A fib
-diurese
-continue home clonidine 0.1mg bid
#Celluitis
-Abx per hospitalist
# Morbid obesity
Physical Exam
Vital Signs/Labs
Vital Signs
Temp Pulse Resp BP Pulse Ox
97 F 103 20 134/72 93
04/23/23 07:59 04/23/23 06:00 04/23/23 07:59 04/23/23 03:49 04/23/23 07:59
04/22/23 04/23/23 04/24/23
06:59 06:59 06:59
Actual Weight 177.4 kg
04/23/23 04:00
04/23/23 04:00
APTT Cancelled 04/22/23 11:35
Magnesium 2.0 mg/dl (1.6-2.3) 04/22/23 04:50
Triglycerides 141 mg/dl (10-149) 04/22/23 04:50
LDL Cholesterol, Calc 50 mg/dl 04/22/23 04:50
VLDL Cholesterol, Calc 28 mg/dl (0-30) 04/22/23 04:50
HDL Cholesterol 66 mg/dl 04/22/23 04:50
04/21/23
17:37
Frd-L-Iskiqbixcmu Pept 1480
Physical Exam
Constitutional: No acute distress and Comfortable
EENT: Moist mucous membranes
Cardiovascular: Systolic murmur absent, Rhythm/rate is irregular, Pedal edema present and JVD present
Respiratory: Respiratory effort normal and Lungs clear to auscul.
GI: Soft, Distention absent and Flat
Neuro/Psych: AO x 3
Data Reviewed
-
Date of Service: April 23, 2023
EKG: Other (Tele: A fib avg ~100)
Labs: Labs Reviewed by me
[2023-04-23] MEDS: CATAPRES 0.100000000000000006 MG PO (09:41)
[2023-04-23] MEDS: KEFLEX 500 MG PO ×3 (09:41→22:00)
[2023-04-23] MEDS: ELIQUIS 5 MG PO ×2 (09:41→22:00)
[2023-04-23] MEDS: PROTONIX 40 MG PO (09:41)
[2023-04-23] MEDS: COREG 25 MG PO ×2 (09:42→22:00)
[2023-04-23] MEDS: CARDIZEM CD 120 MG PO (09:42)
[2023-04-23] MEDS: FARXIGA 10 MG PO (09:42)
[2023-04-23] MEDS: LASIX 40 MG IV ×2 (09:43→17:33)
[2023-04-23] MEDS: FLUSH (NSS) 2 FLUSH IV ×2 (09:43→17:34)
--- NOTE | 2023-04-23 10:36 | PTCARENOTE ---
Received patient this morning resting in bed. Complaining of severe fatigue and did not want to get up or order any breakfast. Dyspneic with minimal exertion, on 2.5L NC with pulse ox of 94%. Will continue to diurese as ordered, new medications
explained. Patient informed of ultrasound of LE's ordered and he is refusing them. States he feels worse than yesterday and wants to address AF/HF at this time and deal with vascular issues later, Dr. Jackson notified.
[2023-04-23] MEDS: DAKIN'S SOLUTION 0.125% 1/4 STRENGTH 1 ML TOPICAL ×2 (12:24→22:00)
[2023-04-23] MEDS: KEFLEX PO ×2 (13:48→14:38)
--- NOTE | 2023-04-23 15:10 | W.PN.HOSP.TC ---
Today's Communication/Plan
-
continue IV Lasix
continue oral Abx
nocturnal O2 testing
Assessment / Plan
Assessment / Plan
Assessment:
Atrial Fibrillation with Rapid Ventricular Response
- CBC Cards following
- s/p Cardizem drip; now on oral Cardizem and Coreg
- continue Eliquis for CHADS2-VASC = 2
- OP DCCV in 4 weeks
- Echo: Normal biventricular size and systolic function without regional wall motion abnormality. Estimated LVEF 55-60%. No significant valve disease.
Acute HFpEF
- continue IV Lasix - requires intensive monitoring of I/OS, weights
- Echo: Normal biventricular size and systolic function without regional wall motion abnormality. Estimated LVEF 55-60%. No significant valve disease.
Right Lower Extremity Cellulitis related to RLE chronic venous stasis wound
- previously saw [facility]
- follow wound care recs
- vascular consulted; no surgical intervention
- patient deferring Venous and Arterial US studies for now
- continue Keflex 500mg QID; intolerant of 1000 mg capsules due to nausea, plan 21 day course
Essential Hypertension
- continue clonidine and metoprolol
Morbid Obesity
- affects all aspects of care
- patient is interested in a referral for a weight loss clinic
Suspected Obstructive Sleep Apnea
- Patient would benefit from sleep study as outpatient
- nocturnal oxygen testing ordered
�
DVT ppx: Eliquis
Code Status: Full Code
Anticipated Discharge: > 48 hours
Subjective/Interval History
-
Date of Service: April 23, 2023
reports RLE a bit improving
tolerating Keflex
Objective Data
-
Labs:
Laboratory Results
04/23/23
04:00
WBC 8.3
Hgb 12.4 L
Hct 37.4 L
Plt Count 286
Sodium 135
Potassium 4.1
Chloride 100
Carbon Dioxide 31 H
BUN 19
Creatinine 0.7
Glucose 111 H
Calcium 9.1
Vital Signs:
Vital Signs
Temp Pulse Resp BP Pulse Ox
97.4 F 98 22 110/67 95
04/23/23 12:07 04/23/23 12:00 04/23/23 12:07 04/23/23 11:55 04/23/23 12:07
I&O
04/22/23 04/23/23 04/24/23
06:59 06:59 06:59
Intake Total 120 / 120
Output Total 200 / 200 2875 / 2875 1500 / 1500
Balance -80 / -80 -2875 / -2875 -1500 / -1500
Physical Exam
-
General: Well Developed and Well Nourished
HEENT: Negative Atraumatic or Moist Mucous Membranes
Respiratory: Negative Wheezes or Rales
Cardiac: Regular Rhythm and S1/S2
GI: Soft
Genito-urinary: No Costovertebral Tender
Neuro: AO x 3
Hematologic / Lymphatic: No Lymphadenopathy
Psych: Calm
Data Reviewed
-
Total Time Spent with Patient (in minutes): 51
Labs: Labs Reviewed by me
--- NOTE | 2023-04-23 15:25 | CM ---
Reviewed chart. Met with , and Mrs. Herrera to review discharge plans. He states he is not feeling well today. Prior to admission he resides with his spouse in a one story home with does not have one step to enter. Prior to admission he was
independent with ambulation and adls. He does not have any DME in the home. He has a prescription plan and uses [facility]. Will need to see his current functional level to see if he will have any skilled care needs. Medical work-up in progress.
Te discharge plan is to return home with his spouse when medically stable.
[2023-04-23] MEDS: CATAPRES PO (21:55)
[2023-04-23] MEDS: MELATONIN 10 MG PO (22:00)
--- NOTE | 2023-04-23 23:05 | PTCARENOTE ---
Sleep apnea study- in progress- 2L o2 turned off by respiratory- NC remains on incase we need to turn the o2 back on while sleeping overnight. Pt and family aware of POC. VSS. RLE dressing CDI.
[2023-04-24] VITALS (9 sets, daily range): BP systolic 79–149; BP diastolic 53–98; BMI 51.1
[2023-04-24 03:01] LABS: Hematocrit 41.7 % (39.0-52.0); Hemoglobin 13.9 g/dL (13.0-18.0); Mean Corp Hgb Conc. 33.3 g/dL (33.0-37.0); Mean Corpuscular Hgb 30.2 pg (27.0-31.0); Mean Corpuscular Volume 90.5 fL (80.0-94.0); Mean Platelet Volume 9.6 fL (7.4-10.4); Platelet Count 330 10^3/uL (130-400); Red Blood Cell Count 4.61 10^6/uL (4.70-6.10); Red Cell Dist. Width 14.1 % (11.5-14.5); White Blood Cell Count 9.1 10^3/uL (4.8-10.8)
[2023-04-24 03:13] LABS: Blood Urea Nitrogen 18 mg/dl (9-20); Calcium 9.4 mg/dl (8.4-10.2); Carbon Dioxide 32 mmol/L (22-30); Chloride 97 mmol/L (98-107); Estimated Creatinine Clearance > 125 ml/min; Glucose 113 mg/dl (70-99); Potassium 3.8 mmol/L (3.5-5.1); Sodium 135 mmol/L (135-145); eGFR > 60.00
--- NOTE | 2023-04-24 04:28 | PTCARENOTE ---
wound dressing changed as per orders- Pts family and son did not leave until 0230- nocturnal sleep apnea test should reflect this.
[2023-04-24] MEDS: TYLENOL 650 MG PO (08:11)
--- NOTE | 2023-04-24 08:37 | W.PN.CD ---
Today's Communication / Plan
-
continue lasix 40mg IV bid
increase dilt to 240 mg daily
Impression / Plan
-
58 yo male with PMH of chronic HFPEF, HTN, venous insufficiency, morbid obesity (BMI >50) admitted with SOB, edema, weight gain.
Findings include new A fib with RVR, acute on chronic HFPEF, and cellulitis.
# New A fib with RVR
-rate: coreg 25mg bid. will increase diltiazem to 240mg daily.
-CHADS2-VASC = 2. Eliquis 5mg bid for OAC
-eventual eval for outpatient DCCV after 3-4 weeks OAC
# Acute on chronic HFPEF, severe
-echo : EF 55-60%, no sig valve disease
-home lasix is 20mg daily
-continue lasix 40mg IV bid
-close monitoring of labs and tele
-continue Farxiga 10mg daily
# HTN: improved
-uncontrolled on admission: changed Toprol to coreg 25mg bid, and added diltiazem for A fib
-diurese
-continue home clonidine 0.1mg bid
#Celluitis
-Abx per hospitalist
# Morbid obesity
Physical Exam
Vital Signs/Labs
Vital Signs
Temp Pulse Resp BP Pulse Ox
97.3 F 102 20 111/81 94
04/24/23 08:19 04/24/23 05:00 04/24/23 08:19 04/24/23 02:42 04/24/23 08:19
04/23/23 04/24/23 04/25/23
06:59 06:59 06:59
Actual Weight 385 lb 9.416 oz
04/24/23 02:40
04/24/23 02:40
APTT Cancelled 04/22/23 11:35
Magnesium 2.0 mg/dl (1.6-2.3) 04/22/23 04:50
Triglycerides 141 mg/dl (10-149) 04/22/23 04:50
LDL Cholesterol, Calc 50 mg/dl 04/22/23 04:50
VLDL Cholesterol, Calc 28 mg/dl (0-30) 04/22/23 04:50
HDL Cholesterol 66 mg/dl 04/22/23 04:50
04/21/23
17:37
Bzf-E-Nnawvpfjbnr Pept 1480
Physical Exam
Constitutional: No acute distress and Comfortable
EENT: Anicteric and Moist mucous membranes
Cardiovascular: Rhythm/rate is irregular and Pedal edema present
Respiratory: Respiratory effort normal and Lungs clear to auscul.
GI: Soft
Neuro/Psych: AO x 3
Data Reviewed
-
Date of Service: April 24, 2023
EKG: Tracing Personally Visualized and interpreted
Echo: Report Reviewed by me
Labs: Labs Reviewed by me
[2023-04-24] MEDS: FARXIGA 10 MG PO (10:29)
[2023-04-24] MEDS: CATAPRES 0.100000000000000006 MG PO ×2 (10:30→23:33)
[2023-04-24] MEDS: LASIX 40 MG IV ×2 (10:30→16:33)
[2023-04-24] MEDS: PROTONIX 40 MG PO (10:30)
[2023-04-24] MEDS: KEFLEX 500 MG PO ×4 (10:30→23:33)
[2023-04-24] MEDS: ELIQUIS 5 MG PO ×2 (10:30→20:47)
[2023-04-24] MEDS: COREG 25 MG PO ×2 (10:30→20:46)
[2023-04-24] MEDS: CARDIZEM CD 120 MG PO (10:30)
--- NOTE | 2023-04-24 14:16 | W.PN.HOSP.TC ---
Today's Communication/Plan
-
continue IV Lasix
add bowel regimen
Assessment / Plan
Assessment / Plan
Assessment:
Atrial Fibrillation with Rapid Ventricular Response
- CBC Cards following
- s/p Cardizem drip; now on oral Cardizem and Coreg
- continue Eliquis for CHADS2-VASC = 2
- OP DCCV in 4 weeks
- Echo: Normal biventricular size and systolic function without regional wall motion abnormality. Estimated LVEF 55-60%. No significant valve disease.
Acute HFpEF
- continue IV Lasix - requires intensive monitoring of I/OS, weights
- Echo: Normal biventricular size and systolic function without regional wall motion abnormality. Estimated LVEF 55-60%. No significant valve disease.
Right Lower Extremity Cellulitis related to RLE chronic venous stasis wound
- previously saw [facility]
- follow wound care recs
- vascular consulted; no surgical intervention
- patient deferring Venous and Arterial US studies for now
- continue Keflex 500mg QID; intolerant of 1000 mg capsules due to nausea, plan 21 day course
Essential Hypertension
- continue clonidine and metoprolol
Morbid Obesity
- affects all aspects of care
- patient is interested in a referral for a weight loss clinic
Suspected Obstructive Sleep Apnea
- Patient would benefit from sleep study as outpatient
- nocturnal oxygen testing ordered
�
DVT ppx: Eliquis
Code Status: Full Code
Anticipated Discharge: > 48 hours
Subjective/Interval History
-
Date of Service: April 24, 2023
requesting lidocaine cream around wound which he states has worked in the past
Objective Data
-
Labs:
Laboratory Results
04/24/23
02:40
WBC 9.1
Hgb 13.9
Hct 41.7
Plt Count 330
Sodium 135
Potassium 3.8
Chloride 97 L
Carbon Dioxide 32 H
BUN 18
Creatinine 0.7
Glucose 113 H
Calcium 9.4
Vital Signs:
Vital Signs
Temp Pulse Resp BP Pulse Ox
97.3 F 102 20 111/81 93
04/24/23 12:01 04/24/23 05:00 04/24/23 12:01 04/24/23 02:42 04/24/23 12:01
I&O
04/23/23 04/24/23 04/25/23
06:59 06:59 06:59
Intake Total 240 / 240
Output Total 2875 / 2875 2800 / 2800 1100 / 1100
Balance -2875 / -2875 -2560 / -2560 -1100 / -1100
Physical Exam
-
General: No Apparent Distress
HEENT: Normocephalic and Atraumatic
Respiratory: Negative Wheezes or Rales
Cardiac: Irregular Rhythm
GI: Soft
Musculoskeletal: Edema, Right Upper Extrem and Edema, Left Upper Extrem
Neuro: AO x 3
Psych: Calm
Data Reviewed
-
Total Time Spent with Patient (in minutes): 51
Labs: Labs Reviewed by me
[2023-04-24] MEDS: DAKIN'S SOLUTION 0.125% 1/4 STRENGTH 1 ML TOPICAL ×2 (15:00→23:38)
--- NOTE | 2023-04-24 16:27 | CHAP ---
Mr. Herrera's called to request a visit for him. 'It's not easy being the patient,' he said. I offered spiritual and emotional support - we prayed together.
--- NOTE | 2023-04-24 20:30 | PTCARENOTE ---
bp 140/98. pt refusing catapres dose. states he wants to see if it comes down.pt agrees to re access bp in a few hours.
[2023-04-24] MEDS: SENOKOT 8.59999999999999964 MG PO (20:46)
--- NOTE | 2023-04-24 21:53 | PTCARENOTE ---
pt c/o itching in lower legs. He states this has happened before as the edema in his legs improve. he has a cream at home he uses and is requesting it. house speech language pathologist prn notified.
--- NOTE | 2023-04-24 23:30 | PTCARENOTE ---
bp 149/94. pt ok with taking catapres dose now
[2023-04-24] MEDS: MELATONIN 10 MG PO (23:34)
[2023-04-24] MEDS: LMX 4 1 APPLIC TOPICAL (23:40)
[2023-04-24] MEDS: TRIAMCINOLONE 0.1% OINTMENT 1 APPLIC TOPICAL (23:40)
[2023-04-25] VITALS (7 sets, daily range): BP systolic 94–137; BP diastolic 56–93; BMI 50.8
[2023-04-25] MEDS: ULTRAM 25 MG PO ×2 (00:01→23:24)
--- NOTE | 2023-04-25 00:12 | PTCARENOTE ---
right lower leg wound re packed and dressing changed as ordered. pt states he has pain after the dressing change. rates it 8/10. ultram given for pain.family still with pt. pt encouraged to get some sleep. pt states he needs them to stay to help
ease his anxiety. support provided frequently.
--- NOTE | 2023-04-25 00:26 | PTCARENOTE ---
o2 put on at 2lnc for hs
[2023-04-25 05:54] LABS: Hematocrit 41.4 % (39.0-52.0); Hemoglobin 13.8 g/dL (13.0-18.0); Mean Corp Hgb Conc. 33.3 g/dL (33.0-37.0); Mean Corpuscular Hgb 30.1 pg (27.0-31.0); Mean Corpuscular Volume 90.2 fL (80.0-94.0); Mean Platelet Volume 9.9 fL (7.4-10.4); Platelet Count 264 10^3/uL (130-400); Red Blood Cell Count 4.59 10^6/uL (4.70-6.10); Red Cell Dist. Width 13.6 % (11.5-14.5); White Blood Cell Count 7.1 10^3/uL (4.8-10.8)
[2023-04-25 06:12] LABS: Blood Urea Nitrogen 19 mg/dl (9-20); Calcium 8.9 mg/dl (8.4-10.2); Carbon Dioxide 31 mmol/L (22-30); Chloride 97 mmol/L (98-107); Estimated Creatinine Clearance > 125 ml/min; Glucose 107 mg/dl (70-99); Potassium 4.2 mmol/L (3.5-5.1); Sodium 133 mmol/L (135-145); eGFR > 60.00
[2023-04-25] MEDS: PROTONIX 40 MG PO (09:40)
[2023-04-25] MEDS: COREG 25 MG PO ×2 (09:40→20:09)
[2023-04-25] MEDS: ELIQUIS 5 MG PO ×2 (09:41→20:10)
[2023-04-25] MEDS: KEFLEX 500 MG PO ×3 (09:41→17:07)
--- NOTE | 2023-04-25 09:58 | W.PN.CD ---
Today's Communication / Plan
-
- cont IV diuresis HRs are better controlled
Impression / Plan
-
58 yo male with PMH of chronic HFPEF, HTN, venous insufficiency, morbid obesity (BMI >50) admitted with SOB, edema, weight gain.
Findings include new A fib with RVR, acute on chronic HFPEF, and cellulitis.
# New A fib with RVR
-rate: coreg 25mg bid. continnue diltiazem to 240mg daily.
-CHADS2-VASC = 2. Eliquis 5mg bid for OAC
-eventual eval for outpatient DCCV after 3-4 weeks OAC
# Acute on chronic HFPEF, severe
-echo : EF 55-60%, no sig valve disease
-home lasix is 20mg daily
-continue lasix 40mg IV bid
-close monitoring of labs and tele
-continue Farxiga 10mg daily
# HTN: improved
-uncontrolled on admission: changed Toprol to coreg 25mg bid, and added diltiazem for A fib
-diurese
-continue home clonidine 0.1mg bid
#Celluitis
-Abx per hospitalist
# Morbid obesity
Subjective: Legs are itching asking about d/c, discussed still 2+ LE edema and down nearly 20 lbs, likely 1-2 more days
Physical Exam
Vital Signs/Labs
Vital Signs
Temp Pulse Resp BP Pulse Ox
97.9 F 97 20 113/93 98
04/25/23 07:27 04/25/23 09:40 04/25/23 07:27 04/25/23 09:40 04/25/23 08:20
04/24/23 04/25/23 04/26/23
06:59 06:59 06:59
Actual Weight 385 lb 9.416 oz 376 lb 12.32 oz 373 lb 14.464 oz
04/25/23 05:41
04/25/23 05:41
APTT Cancelled 04/22/23 11:35
Magnesium 2.0 mg/dl (1.6-2.3) 04/22/23 04:50
Triglycerides 141 mg/dl (10-149) 04/22/23 04:50
LDL Cholesterol, Calc 50 mg/dl 04/22/23 04:50
VLDL Cholesterol, Calc 28 mg/dl (0-30) 04/22/23 04:50
HDL Cholesterol 66 mg/dl 04/22/23 04:50
04/21/23
17:37
Sxa-N-Evwkfkctbns Pept 1480
Physical Exam
Constitutional: No acute distress and Comfortable
EENT: Anicteric and Moist mucous membranes
Cardiovascular: Rhythm/rate is irregular and Pedal edema present
Respiratory: Respiratory effort normal and Lungs clear to auscul.
GI: Soft
Neuro/Psych: AO x 3
Data Reviewed
-
Date of Service: April 25, 2023
EKG: Tracing Personally Visualized and interpreted
Labs: Labs Reviewed by me
[2023-04-25] MEDS: CATAPRES PO (10:08)
--- NOTE | 2023-04-25 10:10 | PTCARENOTE ---
Received pt for 7a-7p shift. Pt AAOx3, VSS, afib with PVCs on school bus monitor. Pt request to sleep and take morning meds according to his own schedule. Instructed pt on importance to take cardiac medications and antibiotics as scheduled, pt
agreeable. Pt ambulated to bathroom without assistance and weighed. Instructed pt to order breakfast and call RN to administer the remainder of morning meds. Dressing to RLE intact, instructed pt on plan to change dressing after breakfast. Pt
verbalized understanding. Will continue to monitor.
--- NOTE | 2023-04-25 10:13 | W.PN.HOSP.TC ---
Addendum entered and electronically signed by Concepcion Jackson MD 04/25/23 13:49:
Patient is in need of oxygen at 2 liters/minute via nasal cannula at night time due to pulse oximetry of 85% on room air at rest. Oxygen will help to improve hypoxemia. Patient is mobile within the home. diuretic therapy has been tried and is
ineffective in treating hypoxemia related symptoms. Oxygen is needed to improve symptoms.
Original Note:
Today's Communication/Plan
-
continue diuretics
see below re: itching/rash
Assessment / Plan
Assessment / Plan
Assessment:
Atrial Fibrillation with Rapid Ventricular Response
- CBC Cards following
- s/p Cardizem drip; now on oral Cardizem and Coreg
- continue Eliquis for CHADS2-VASC = 2
- OP DCCV in 4 weeks
- Echo: Normal biventricular size and systolic function without regional wall motion abnormality. Estimated LVEF 55-60%. No significant valve disease.
Acute HFpEF
- continue IV Lasix - requires intensive monitoring of I/OS, weights
- Echo: Normal biventricular size and systolic function without regional wall motion abnormality. Estimated LVEF 55-60%. No significant valve disease.
Right Lower Extremity Cellulitis related to RLE chronic venous stasis wound
- previously saw [facility] and Vein center
- follow wound care recs
- vascular consulted; no surgical intervention
- patient declining Venous and Arterial US studies ('I already had those'
- continue Keflex 500mg QID; intolerant of 1000 mg capsules due to nausea, plan 14-21 day course
- patient should follow up with [facility] and [facility] for ablation evaluation (previously was seeing them with procedure planned but he cancelled)
Essential Hypertension
- continue clonidine and metoprolol
Morbid Obesity
- affects all aspects of care
- patient is interested in a referral for a weight loss clinic
Suspected Obstructive Sleep Apnea
- Patient would benefit from sleep study as outpatient
- nocturnal oxygen testing ordered
Chronic itching, transient rash around chest tele leads
- change bedsheets to hypoallergenic sheets
- resume home Loratadine
- monitor for any worsening
�
DVT ppx: Eliquis
Code Status: Full Code
Anticipated Discharge: > 48 hours
Subjective/Interval History
-
Date of Service: April 25, 2023
reports chronic itching with more itching around tele leads sites, reports he takes Claritin daily in AM
Objective Data
-
Labs:
Laboratory Results
04/25/23
05:41
WBC 7.1
Hgb 13.8
Hct 41.4
Plt Count 264
Sodium 133 L
Potassium 4.2
Chloride 97 L
Carbon Dioxide 31 H
BUN 19
Creatinine 0.7
Glucose 107 H
Calcium 8.9
Vital Signs:
Vital Signs
Temp Pulse Resp BP Pulse Ox
97.9 F 97 20 113/93 98
04/25/23 07:27 04/25/23 09:40 04/25/23 07:27 04/25/23 09:40 04/25/23 08:20
I&O
04/24/23 04/25/23 04/26/23
06:59 06:59 06:59
Intake Total 240 / 240 950 / 950
Output Total 2800 / 2800 3600 / 3600
Balance -2560 / -2560 -2650 / -2650
Physical Exam
-
General: No Apparent Distress
HEENT: Normocephalic and Atraumatic
Respiratory: Negative Wheezes or Rales
Cardiac: Regular Rhythm and S1/S2
GI: Soft and Nontender
Genito-urinary: No Costovertebral Tender
Musculoskeletal: No Edema
Neuro: AO x 3
Hematologic / Lymphatic: No Lymphadenopathy
Psych: Calm
Data Reviewed
-
Total Time Spent with Patient (in minutes): 50
Labs: Labs Reviewed by me
[2023-04-25] MEDS: FARXIGA 10 MG PO (11:36)
[2023-04-25] MEDS: CARDIZEM CD 120 MG PO (11:37)
[2023-04-25] MEDS: SENOKOT PO (11:39)
[2023-04-25] MEDS: LASIX 40 MG IV ×2 (11:39→17:07)
[2023-04-25] MEDS: CLARITIN 10 MG PO (11:46)
[2023-04-25] MEDS: DAKIN'S SOLUTION 0.125% 1/4 STRENGTH 473 ML TOPICAL ×2 (12:24→20:10)
[2023-04-25] MEDS: LMX 4 1 APPLIC TOPICAL ×2 (12:25→20:11)
[2023-04-25] MEDS: TRIAMCINOLONE 0.1% OINTMENT 1 APPLIC TOPICAL ×3 (12:26→20:11)
--- NOTE | 2023-04-25 12:29 | PTCARENOTE ---
Pt reassessed, assessment unchanged from previous. VSS, Afib with PVCs on groundwater monitoring technician. IV lasix, farxiga and cardizem given late at patient request. R lower leg dressing changed as ordered. Pt ambulatory to bathroom, voiding without issues. Pt
refusing stool softeners at this time. Will continue to monitor.
[2023-04-25] MEDS: SENOKOT 8.59999999999999964 MG PO (13:48)
[2023-04-25] MEDS: CATAPRES 0.100000000000000006 MG PO (20:09)
[2023-04-25] MEDS: KEFLEX PO (22:36)
--- NOTE | 2023-04-25 22:47 | PTCARENOTE ---
Received pt at handoff. AOx3. Tele- afib. HR 90-100s. Assessment noted as documented. R lower leg dressing changed as ordered. Pt refusing Keflex. States 'makes him nauseous and makes itching worse.' Pt educated on importance of staying on course w/
antibiotics. Triamcinolone administered for itching to b/l LE. See MAR. Pt family left around 22:00. Pt currently on RA sating at 95%. Currently in bed; call schuyler w/in reach.
[2023-04-25] MEDS: MELATONIN 10 MG PO (23:22)
[2023-04-26] VITALS (8 sets, daily range): BP systolic 113–141; BP diastolic 58–120; O2SAT 90–94; BMI 50.3
--- NOTE | 2023-04-26 02:01 | PTCARENOTE ---
Pt trialed on RA overnight; sating around 89-90%. Pt dips to 84-86% at times. At 0200, 2L NC placed and sating at 92-95%.
[2023-04-26 04:26] LABS: Hematocrit 39.2 % (39.0-52.0); Hemoglobin 13.1 g/dL (13.0-18.0); Mean Corp Hgb Conc. 33.4 g/dL (33.0-37.0); Mean Corpuscular Hgb 30.5 pg (27.0-31.0); Mean Corpuscular Volume 91.4 fL (80.0-94.0); Mean Platelet Volume 9.6 fL (7.4-10.4); Platelet Count 298 10^3/uL (130-400); Red Blood Cell Count 4.29 10^6/uL (4.70-6.10); Red Cell Dist. Width 13.4 % (11.5-14.5); White Blood Cell Count 8.1 10^3/uL (4.8-10.8)
[2023-04-26] MEDS: DAKIN'S SOLUTION 0.125% 1/4 STRENGTH 473 ML TOPICAL ×2 (06:01→22:34)
[2023-04-26] MEDS: LMX 4 1 APPLIC TOPICAL ×2 (06:02→22:34)
--- NOTE | 2023-04-26 06:04 | PTCARENOTE ---
Pt slept well t/o night. No complaints. R lower leg dressing fell off overnight. Redressed per wound care order.
[2023-04-26 06:11] LABS: Blood Urea Nitrogen 22 mg/dl (9-20); Calcium 9.5 mg/dl (8.4-10.2); Carbon Dioxide 30 mmol/L (22-30); Chloride 95 mmol/L (98-107); Estimated Creatinine Clearance > 125 ml/min; Glucose 111 mg/dl (70-99); Potassium 3.7 mmol/L (3.5-5.1); Sodium 135 mmol/L (135-145); eGFR > 60.00
--- NOTE | 2023-04-26 06:31 | W.PN.HOSP.TC ---
Today's Communication/Plan
-
.
Assessment / Plan
Assessment / Plan
Physical Exam
-
General: No Apparent Distress
HEENT: Normocephalic and Atraumatic
Respiratory: Negative Wheezes or Rales
Cardiac: Regular Rhythm and S1/S2
GI: Soft and Nontender
Genito-urinary: No Costovertebral Tender
Musculoskeletal: Edema, wound note don lower leg
Neuro: AO x 3, followed commands.
Psych: Calm, no agitation.
Assessment:
Atrial Fibrillation with Rapid Ventricular Response
-no chest pain or palpitations
- s/p Cardizem drip; now on oral Cardizem and Coreg
- continue Eliquis for CHADS2-VASC = 2
Normal TSH
- OP DCCV in 4 weeks
- Echo: Normal biventricular size and systolic function without regional wall motion abnormality. Estimated LVEF 55-60%. No significant valve disease.
Appreciate cardiology help
Acute on chronic HFpEF
- continue IV Lasix - requires intensive monitoring of I/OS, weights
- Echo: Normal biventricular size and systolic function without regional wall motion abnormality. Estimated LVEF 55-60%. No significant valve disease.
Right Lower Extremity Cellulitis related to RLE chronic venous stasis wound
- previously saw [facility] and Vein center
- follow wound care recs
- vascular consulted; no surgical intervention
- patient declining Venous and Arterial US studies ('I already had those'
- Given Keflex 500mg QID but caused nausea and he refused it. Can switch to Doxy
- patient should follow up with [facility] and [facility] for ablation evaluation (previously was seeing them with procedure planned but he cancelled)
Essential Hypertension
- continue clonidine and metoprolol
Morbid Obesity
BMI 50
- affects all aspects of care
- patient is interested in a referral for a weight loss clinic
Hyponatremia, resolved
Suspected Obstructive Sleep Apnea
- Patient would benefit from sleep study as outpatient
- nocturnal oxygen testing ordered
Chronic itching, transient rash around chest tele leads
- change bedsheets to hypoallergenic sheets
- resume home Loratadine
- monitored for any worsening
�
DVT ppx: Eliquis
Code Status: Full Code
Total time spent to see the patient, examine the patient on the floor, review data and lab results, discuss treatment plan with patient, nursing staff around 55 minutes
Anticipated Discharge: Within 24 hours
Subjective/Interval History
-
Date of Service: April 26, 2023
No chest pain
No sob
No fevers
Objective Data
-
Labs:
Laboratory Results
04/26/23
04:16
WBC 8.1
Hgb 13.1
Hct 39.2
Plt Count 298
Sodium 135
Potassium 3.7
Chloride 95 L
Carbon Dioxide 30
BUN 22 H
Creatinine 0.7
Glucose 111 H
Calcium 9.5
Vital Signs:
Vital Signs
Temp Pulse Resp BP Pulse Ox
97.8 F 105 16 113/78 95
04/26/23 04:05 04/26/23 04:07 04/26/23 04:05 04/26/23 04:07 04/26/23 04:05
I&O
04/24/23 04/25/23 04/26/23
06:59 06:59 06:59
Intake Total 240 / 240 950 / 950 600 / 600
Output Total 2800 / 2800 3600 / 3600 3225 / 3225
Balance -2560 / -2560 -2650 / -2650 -2625 / -2625
[2023-04-26] MEDS: TYLENOL 650 MG PO (09:06)
[2023-04-26] MEDS: SENOKOT PO ×2 (11:16→21:02)
[2023-04-26] MEDS: PROTONIX 40 MG PO (11:17)
[2023-04-26] MEDS: COREG 25 MG PO ×2 (11:17→19:45)
[2023-04-26] MEDS: FARXIGA 10 MG PO (11:17)
[2023-04-26] MEDS: CLARITIN 10 MG PO (11:17)
[2023-04-26] MEDS: ELIQUIS 5 MG PO ×2 (11:18→19:45)
[2023-04-26] MEDS: CARDIZEM CD 120 MG PO (11:18)
[2023-04-26] MEDS: CATAPRES 0.100000000000000006 MG PO ×2 (11:18→19:45)
[2023-04-26] MEDS: LASIX 40 MG IV (11:19)
[2023-04-26] MEDS: TRIAMCINOLONE 0.1% OINTMENT 1 APPLIC TOPICAL ×2 (11:36→22:34)
[2023-04-26] MEDS: KEFLEX PO (11:47)
--- NOTE | 2023-04-26 11:52 | CM ---
Chart reviewed. Patient is independent of ADLS, lives with his in a [address], 1 ANGELA, 0 DME. Patient requiring O2. Notified RN to check O2 saturation with, without and ambulation. Patient may need Home O2. Plan is for the patient to return
home with or without O2. CM to follow
--- NOTE | 2023-04-26 11:52 | PTCARENOTE ---
Resting pulse ox on room air 94%. Pt ambulated in room and maintained a pulse ox of 90%. Pt denies any sob. Will monitor.
--- NOTE | 2023-04-26 12:23 | W.PN.CD ---
Today's Communication / Plan
-
Change furosemide from 40 mg IV BID to 80 mg IV daily.
Monitor HR as diuresis continues.
Low threshold to discontinue clonidine and increase diltiazem.
Impression / Plan
-
Impression/Plan: 58 yo morbidly obese male with HTN and venous insufficiency with LE wounds admitted with HFpEF and new AF-RVR.
#Afib with RVR
-New diagnosis.
-Currently in atrial fibrillation.
-Rate control with carvedilol 25mg bid and diltiazem to 240mg daily.
-Rate control improving with diuresis.
-CHADS2-VASC = 2.
-OAC with apixaban 5 mg BID.
-Eventual outpatient DCCV after 3-4 weeks OAC.
#HFPEF
-Acute on chronic.
-Echo : EF 55-60%, no sig valve disease.
-Home furosemide is 20mg daily.
-Change furosemide to 80 mg IV daily (currently 40 mg IV BID).
-Close monitoring of labs and tele.
-Continue dapagliflozin 10mg daily.
# HTN
-Uncontrolled on admission, now improving.
-Metoprolol succinate changed to carvedilol 25mg bid, and added diltiazem for atrial fibrillation rate control.
-Continue home clonidine 0.1mg bid.
#Celluitis
-Acute.
-Abx per hospitalist.
# Morbid obesity
-Chronic, stable.
-This is a major contributor to his overall morbidity.
Subjective/Interval History:
Weight is down 9 kg (177.2 kg --> 168 kg).
HR now 86-120.
SaO2 94% on room air. SaO2 drops overnight. Home O2 recommended.
Still feels tired.
DATA:
TTE, 04/22/2023:
CONCLUSIONS
�Contrast used.
�
�Normal biventricular size and systolic function without regional wall motion
�abnormality. Estimated LVEF 55-60%.
�No signficant valve disease.
�
�Compared to 05/07/21: rhythm is now A fib (prior NSR).� Other finding stable.
Physical Exam
Vital Signs/Labs
Vital Signs
Temp Pulse Resp BP Pulse Ox
36.2 C 105 18 126/80 94
04/26/23 07:00 04/26/23 11:18 04/26/23 07:00 04/26/23 11:18 04/26/23 11:48
04/25/23 04/26/23 04/27/23
11:59 11:59 11:59
Actual Weight 169.6 kg 168 kg
04/26/23 04:16
04/26/23 04:16
APTT Cancelled 04/22/23 11:35
Magnesium 2.0 mg/dl (1.6-2.3) 04/22/23 04:50
Triglycerides 141 mg/dl (10-149) 04/22/23 04:50
LDL Cholesterol, Calc 50 mg/dl 04/22/23 04:50
VLDL Cholesterol, Calc 28 mg/dl (0-30) 04/22/23 04:50
HDL Cholesterol 66 mg/dl 04/22/23 04:50
04/21/23
17:37
Gnf-W-Lhdfruylnsk Pept 1480
Physical Exam
Constitutional: No acute distress and Comfortable
EENT: Anicteric and Moist mucous membranes
Cardiovascular: Rhythm/rate is irregular, Pedal edema present, JVD present, S1S2 is normal and Murmur/rub/gallop absent
Respiratory: Respiratory effort normal, Wheeze Absent, Crackles Absent, Rhonchi Absent and Other (Decreased throughout.)
GI: Soft, Distention absent, Flat, Non tender and Normal bowel sounds
Neuro/Psych: AO x 3
Data Reviewed
-
Date of Service: April 26, 2023
Medical Decision Making: Reviewed Test Results, Independent Historian Assessment and Test Interpretation
EKG: Tracing Personally Visualized and interpreted and Report Reviewed by me
Echo: Tracing Personally Visualized and interpreted and Report Reviewed by me
X-Ray/CT/US/MRI/NUC/PET: Image Personally Visualized and interpreted and Report Reviewed by me
Medical Tests (PFT, Pathology etc): Image Personally Visualized and interpreted and Report Reviewed by me
Labs: Labs Reviewed by me
[2023-04-26] MEDS: TRIAMCINOLONE 0.1% OINTMENT TOPICAL (18:59)
[2023-04-26] MEDS: VIBRAMYCIN 100 MG PO (19:46)
[2023-04-26] MEDS: MELATONIN 10 MG PO (22:37)
[2023-04-26] MEDS: ULTRAM 25 MG PO (22:55)
[2023-04-27] VITALS (9 sets, daily range): BP systolic 95–121; BP diastolic 55–100; BMI 50.1
--- NOTE | 2023-04-27 00:20 | PTCARENOTE ---
Received pt at handoff. AOX3. Tele- afib. Assessment noted as documented. R lower leg wound care completed as ordered. Pt states 7/10 pain after wound change. Ultram administered. See MAR. Currently in bed; call schuyler w/in reach.
[2023-04-27 04:24] LABS: Hematocrit 41.5 % (39.0-52.0); Hemoglobin 13.5 g/dL (13.0-18.0); Mean Corp Hgb Conc. 32.5 g/dL (33.0-37.0); Mean Corpuscular Hgb 30.1 pg (27.0-31.0); Mean Corpuscular Volume 92.4 fL (80.0-94.0); Mean Platelet Volume 9.7 fL (7.4-10.4); Platelet Count 312 10^3/uL (130-400); Red Blood Cell Count 4.49 10^6/uL (4.70-6.10); Red Cell Dist. Width 13.3 % (11.5-14.5); White Blood Cell Count 8.5 10^3/uL (4.8-10.8)
[2023-04-27 04:49] LABS: Blood Urea Nitrogen 23 mg/dl (9-20); Calcium 9.3 mg/dl (8.4-10.2); Carbon Dioxide 34 mmol/L (22-30); Chloride 93 mmol/L (98-107); Estimated Creatinine Clearance > 125 ml/min; Glucose 109 mg/dl (70-99); Potassium 3.6 mmol/L (3.5-5.1); Sodium 135 mmol/L (135-145); eGFR > 60.00
--- NOTE | 2023-04-27 06:16 | W.PN.HOSP.TC ---
Today's Communication/Plan
-
.
Assessment / Plan
Assessment / Plan
Physical Exam
-
General: No Apparent Distress
HEENT: Normocephalic and Atraumatic
Respiratory: Negative Wheezes or Rales
Cardiac: Regular Rhythm and S1/S2
GI: Soft and Nontender
Genito-urinary: No Costovertebral Tender
Musculoskeletal: Edema, wound note don lower leg
Neuro: AO x 3, followed commands.
Psych: Calm, no agitation.
Assessment:
# persistent Atrial Fibrillation with Rapid Ventricular Response
-no chest pain or palpitations
- s/p Cardizem drip; now on oral Cardizem and Coreg
- continue Eliquis for CHADS2-VASC = 2
Normal TSH
- OP DCCV in 4 weeks
- Echo: Normal biventricular size and systolic function without regional wall motion abnormality. Estimated LVEF 55-60%. No significant valve disease.
Appreciate cardiology help
Acute on chronic HFpEF
- continue IV Lasix, increased the dose - requires intensive monitoring of I/OS, weights
- Echo: Normal biventricular size and systolic function without regional wall motion abnormality. Estimated LVEF 55-60%. No significant valve disease.
Right Lower Extremity Cellulitis related to RLE chronic venous stasis wound
- previously saw [facility] and Vein center
- follow wound care recs. Patient wanted to discuss with wound care nurse
- vascular consulted; no surgical intervention
- patient declining Venous and Arterial US studies ('I already had those'
- Given Keflex 500mg QID but caused nausea and he refused it. Can switch to Doxy, he seems to tolerate it
- patient should follow up with [facility] and [facility] for ablation evaluation (previously was seeing them with procedure planned but he cancelled)
Essential Hypertension
- continue clonidine and metoprolol
Morbid Obesity
BMI 50
- affects all aspects of care
- patient is interested in a referral for a weight loss clinic
#Hyponatremia, resolved
#Suspected Obstructive Sleep Apnea
- Patient would benefit from sleep study as outpatient
- nocturnal oxygen testing ordered
#Chronic itching, transient rash around chest tele leads
- change bedsheets to hypoallergenic sheets
- resume home Loratadine
- monitored for any worsening
�
#DVT ppx: Eliquis
Code Status: Full Code
Total time spent to see the patient, examine the patient on the floor, review data and lab results, discuss treatment plan with patient, nursing staff around 55 minutes
Anticipated Discharge: 24 - 48 hours
Subjective/Interval History
-
Date of Service: April 27, 2023
No chest pain
No sob
Objective Data
-
Labs:
Laboratory Results
04/27/23
04:02
WBC 8.5
Hgb 13.5
Hct 41.5
Plt Count 312
Sodium 135
Potassium 3.6
Chloride 93 L
Carbon Dioxide 34 H
BUN 23 H
Creatinine 0.6 L
Glucose 109 H
Calcium 9.3
Vital Signs:
Vital Signs
Temp Pulse Resp BP Pulse Ox
98.0 F 96 20 114/78 99
04/27/23 04:46 04/27/23 04:00 04/27/23 04:46 04/27/23 03:35 04/27/23 04:46
I&O
04/25/23 04/26/23 04/27/23
06:59 06:59 06:59
Intake Total 950 / 950 600 / 600
Output Total 3600 / 3600 3225 / 3225
Balance -2650 / -2650 -2625 / -2625
[2023-04-27] MEDS: SENOKOT PO ×2 (08:16→20:35)
[2023-04-27] MEDS: PROTONIX 40 MG PO (08:16)
[2023-04-27] MEDS: VIBRAMYCIN 100 MG PO ×2 (08:17→20:30)
[2023-04-27] MEDS: FARXIGA 10 MG PO (08:17)
[2023-04-27] MEDS: ELIQUIS 5 MG PO ×2 (08:18→20:30)
[2023-04-27] MEDS: CLARITIN 10 MG PO (08:18)
[2023-04-27] MEDS: CATAPRES PO ×2 (08:19→20:30)
[2023-04-27] MEDS: COREG 25 MG PO ×2 (08:24→20:30)
[2023-04-27] MEDS: TYLENOL 650 MG PO (08:24)
[2023-04-27] MEDS: CARDIZEM CD 120 MG PO (08:25)
--- NOTE | 2023-04-27 10:27 | W.PN.CD ---
Today's Communication / Plan
-
Continue current diuretic and rate control meds
Impression / Plan
-
58 yo morbidly obese male with HTN and venous insufficiency with LE wounds admitted with HFpEF and new AF-RVR.
New AFib, so far persisting, duration unknown
- Rate: about 100 bpm at rest on Coreg 25 bid and dilt ER 120 a day
- Anticoag: Eliquis 5 BID
- Cardioversion in 3-4 weeks
- NOT A GOOD ABLATION CANDIDATE
HFpEF
-Weight is down 9 kg (177.2 kg --> 168 kg --> 167.3).
-Acute on chronic.
-Echo 04/22/2023: EF 55-60%, no sig valve disease.
-Home furosemide is 20mg daily.
-Current furosemide to 80 mg IV daily (was 40 mg IV BID).
-Close monitoring of labs and tele.
-Continue dapagliflozin 10mg daily.
HTN, better on multiple meds
Wound with cellulitis => per hospitalist.
Morbid obesity, major contributor to his overall morbidity.
Subjective/Interval History:
Feels OK
Echo 04/22/2023: Normal LV/RV syst fxn, valves OK. IV contrast, c/w 04/2021 AFIb replaced Sinus
Physical Exam
Vital Signs/Labs
Vital Signs
Temp Pulse Resp BP Pulse Ox
97.4 F 108 20 104/55 99
04/27/23 07:41 04/27/23 08:24 04/27/23 07:41 04/27/23 08:24 04/27/23 07:41
04/26/23 04/27/23 04/28/23
06:59 06:59 06:59
Actual Weight 168 kg 167.3 kg
04/27/23 04:02
04/27/23 04:02
APTT Cancelled 04/22/23 11:35
Magnesium 2.0 mg/dl (1.6-2.3) 04/22/23 04:50
Triglycerides 141 mg/dl (10-149) 04/22/23 04:50
LDL Cholesterol, Calc 50 mg/dl 04/22/23 04:50
VLDL Cholesterol, Calc 28 mg/dl (0-30) 04/22/23 04:50
HDL Cholesterol 66 mg/dl 04/22/23 04:50
04/21/23
17:37
Ckj-[id number] Pept 1480
Physical Exam
Constitutional: No acute distress
EENT: Anicteric
Cardiovascular: Rhythm/rate is irregular, Pedal edema present and S1S2 is normal
Respiratory: Respiratory effort normal and Lungs clear to auscul.
GI: Soft
Neuro/Psych: Alert
Data Reviewed
-
Date of Service: April 27, 2023
--- NOTE | 2023-04-27 10:56 | PTCARENOTE ---
Patient is refusing RN's offer to change wound dressing. Patient does not want to change it until he speaks to WOCN first. RN placed a WOCN consult this am for patient. Patient has also declined his 80mg IV lasix twice now, stating he wants to sleep
more. RN offered to give patient lasix a third time and patient asked if he could wait for me to give it until after he orders lunch. RN said that is fine. RN asked if patient needs anything else for pain, pt stated he is fine right now with the
Tylenol he received earlier.
--- NOTE | 2023-04-27 13:26 | PTCARENOTE ---
Made MD Douglass and MD Garcia aware of patient continuing to push off lasix administration until later hours. RN educated patient on importance of medication time/administration, intake and output, heart failure plan of care. Pt continues to refuse
lasix at this time.
[2023-04-27] MEDS: LMX 4 TOPICAL ×2 (13:29→20:34)
[2023-04-27] MEDS: DAKIN'S SOLUTION 0.125% 1/4 STRENGTH TOPICAL ×2 (13:29→20:34)
[2023-04-27] MEDS: TRIAMCINOLONE 0.1% OINTMENT TOPICAL ×3 (13:29→22:38)
--- NOTE | 2023-04-27 13:30 | PTCARENOTE ---
RN spoke with NISA over the phone about patient awaiting for her arrival and refusing my offers to change his wound dressing.
--- NOTE | 2023-04-27 14:24 | CM ---
Chart reviewed. Patient had nocturnal O2 study done on 04/22. Patient has a history of LINA so he does not qualify for nighttime O2. He would need an outpatient sleep study performed. 04/25 Pulse ox was tested on RA. Patient had a resting pulse ox
on room air 94%. Pt ambulated in room and maintained a pulse ox of 90%. Pt denied any sob. Patient does not qualify. CM to continue to follow
[2023-04-27] MEDS: LASIX IV (14:33)
--- NOTE | 2023-04-27 14:50 | WOUNDNOTE ---
R LOWER LATERAL LEG
--- NOTE | 2023-04-27 14:51 | WOUNDNOTE ---
R LEG AND L MEDIAL ANKLE REDNESS
--- NOTE | 2023-04-27 14:52 | WOUNDNOTE ---
WON RN NOTE: Followed up with patient at request by patient and Dr. Douglass. Patient states he has increased pain at R leg wound and wanted to know if any changes can be made with wound care. Wound appears to be cleaning up, thin layer of slough at
base mixed with pink granulating tissue. + palpable pedal pulses. L medial ankle with blanchable red skin, Old healed venous ulcers patient states. Patient said he has had wounds for over 10 yrs and this one on his R leg is the last one that won't
heal. No odor in wound, periwound blanchable red. Patient states he has been using triamcinolone for itching and lidocaine for pain to periwound. 'Sometimes I use Bactine 4% spray to base of wound at home' patient states. at bedside confirmed
he uses Circaid compression wraps at home daily and elevates leg. In past according to wound care center reports, patient was non compliant with compression. Today agreed to try leonora wrap as long as it doesn't hurt. Discussed the importance of
compression with wound healing and leg elevation. Encouraged patient to increase protein in diet. Today applied creams already ordered to periwound, Mesalt to base of wound, fluffed 2x2 gauze and silicone foam then leonora wrap knee high. Can remove leonora
wrap at bedtime. Patient to resume Circaid compression at home. Patient able to do own wound care he said. Will confirm the above with hospitalist and nurse Mera chacon. Called [facility] for more Mesalt and asked nurse to bring to his rm. Can bring
supplies home upon discharge. Will update care plan and follow as needed.
[2023-04-27] MEDS: LASIX 80 MG IV (15:37)
[2023-04-27] MEDS: MELATONIN 10 MG PO (22:38)
--- NOTE | 2023-04-27 23:36 | PTCARENOTE ---
Received pt at handoff. AOx3. Assessment noted as documented. Tele- Afib. RLE dressing c/d/i. Cory bandage removed at HS. Offers no complaints of pain. POC reviewed w/ pt. Educated pt on importance of daily weights, I/Os, medication adherence w/ CHF
diagnosis. Currently in bed; call schuyler w/in reach.
[2023-04-28 05:27] VITALS: BP 125/96
[2023-04-28 05:30] VITALS: BMI 49.5
--- NOTE | 2023-04-28 06:25 | W.PN.HOSP.TC ---
Today's Communication/Plan
-
dc
Assessment / Plan
Assessment / Plan
Physical Exam
-
General: No Apparent Distress
HEENT: Normocephalic and Atraumatic
Respiratory: Negative Wheezes or Rales
Cardiac: Regular Rhythm and S1/S2
GI: Soft and Nontender
Genito-urinary: No Costovertebral Tender
Musculoskeletal: less Edema, wound noted on lower leg
Neuro: AO x 3, followed commands.
Psych: Calm, no agitation.
Assessment:
# persistent Atrial Fibrillation with Rapid Ventricular Response
-no chest pain or palpitations
- s/p Cardizem drip; now on oral Cardizem and Coreg
- continue Eliquis for CHADS2-VASC = 2
Normal TSH
- OP DCCV in 4 weeks
- Echo: Normal biventricular size and systolic function without regional wall motion abnormality. Estimated LVEF 55-60%. No significant valve disease.
Appreciate cardiology help
Acute on chronic HFpEF
- s/p IV Lasix, dc on oral Lasix.
- Echo: Normal biventricular size and systolic function without regional wall motion abnormality. Estimated LVEF 55-60%. No significant valve disease.
Right Lower Extremity Cellulitis related to RLE chronic venous stasis wound
- previously saw [facility] and Vein center
- follow wound care recs. Patient met with wound care nurse.
- vascular consulted; no surgical intervention
- patient declining Venous and Arterial US studies ('I already had those'
- Given Keflex 500mg QID but caused nausea and he refused it. Can switch to Doxy, he seems to tolerate it, to finish 7 days course
- patient should follow up with [facility] and [place] [facility] for ablation evaluation (previously was seeing them with procedure planned but he cancelled)
Essential Hypertension
- continue clonidine and metoprolol
Morbid Obesity
BMI 50
- affects all aspects of care
- patient is interested in a referral for a weight loss clinic
#Hyponatremia, resolved
#Suspected Obstructive Sleep Apnea
- Patient would benefit from sleep study as outpatient
- nocturnal oxygen testing ordered
#Chronic itching, transient rash around chest tele leads
- change bedsheets to hypoallergenic sheets
- resumed home Loratadine
- monitored for any worsening
�
#DVT ppx: Eliquis
Code Status: Full Code
Total discharge time spent to see the patient, examine the patient on the floor, review data and lab results, discuss discharge plan with patient, nursing staff around 65 minutes
Anticipated Discharge: Today
Subjective/Interval History
-
Date of Service: April 28, 2023
No chest pain
No sob
Objective Data
-
Vital Signs:
Vital Signs
Temp Pulse Resp BP Pulse Ox
97.7 F 129 18 125/96 95
04/28/23 05:30 04/28/23 05:27 04/28/23 05:30 04/28/23 05:27 04/28/23 05:30
I&O
04/26/23 04/27/23 04/28/23
06:59 06:59 06:59
Intake Total 600 / 600 720 / 720
Output Total 3225 / 3225 2700 / 2700
Balance -2624 / -2624 -1979 /
[2023-04-28 07:16] VITALS: BP 119/59
--- NOTE | 2023-04-28 08:23 | W.PN.CD ---
Today's Communication / Plan
-
- anxious to go home -> I have no objections
- MEDS: as below
- Follow up: Sanchez Cartwright Apr 13 at 2:20
- Plan is rate control until DCCV in 3-4 weeks (uninterrupted AC). Longer term maintenance of NSR polly likely require weight loss, CPAP, ablation, etc
Impression / Plan
-
58 yo morbidly obese male with HTN and venous insufficiency with LE wounds admitted with HFpEF and new AF-RVR.
New AFib, so far persisting, duration unknown
- Rate: about 100 bpm at rest on Coreg 25 bid and dilt ER 120 a day
- Anticoag: Eliquis 5 BID
- Cardioversion in 3-4 weeks
- NOT A GOOD ABLATION CANDIDATE
HFpEF
-Weight is down 9 kg (177.2 kg --> 168 kg --> 167.3).
-Acute on chronic.
-Echo 04/22/2023: EF 55-60%, no sig valve disease.
-Home furosemide is 20mg daily.
-Current furosemide is transitioned to 40 po BID
-Close monitoring of labs and tele.
-Continue dapagliflozin 10mg daily. Consider MRA as outpatient.
HTN, better on multiple meds
Wound with cellulitis => per hospitalist.
Morbid obesity, major contributor to his overall morbidity.
Dispo
- anxious to go home -> I have no objections
- MEDS: as below
- Follow up: Sanchez Cartwright Apr 13 at 2:20
- Plan is rate control until DCCV in 3-4 weeks (uninterrupted AC). Longer term maintenance of NSR polly likely require weight loss, CPAP, ablation, etc
Subjective/Interval History:
Feels OK - breathing at baseline. Weight probably at baseline
Echo 04/22/2023: Normal LV/RV syst fxn, valves OK. IV contrast, c/w 04/2021 AFIb replaced Sinus
Laboratory Data
04/27/23
04:02
Hgb 13.5
Creatinine 0.6 L
Selected Entries
04/21/23
17:26 04/28/23
05:30 03/03/21
07:02
Actual Weight 390 lb 10.546
oz 364 lb 6.786 oz 357 lb 11.2 oz
Generic Name Dose Route Start Last Admin
Trade Name Freq PRN Reason Stop Dose Admin
Clonidine HCl 0.1 mg 04/22/23 08:00
Clonidine 0.1 Mg Tablet PO 05/20/23 07:59
BID VERNON
Apixaban 5 mg 04/22/23 09:00
Apixaban (Eliquis) 5 Mg Tablet PO 05/20/23 08:59
BID VERNON
Carvedilol 25 mg 04/22/23 10:00
Carvedilol 25 Mg Tablet PO 05/20/23 09:59
BID VERNON
Dapagliflozin 10 mg 04/22/23 09:30
Dapagliflozin (Farxiga) 10 Mg Tablet PO 05/20/23 09:29
DAILY VERNON
Diltiazem HCl 120 mg 04/23/23 09:00
Diltiazem 120 Mg Extended Release (24 H) Capsule PO 05/21/23 08:59
DAILY VERNON
Furosemide 40 mg 04/28/23 08:00
Furosemide 40 Mg Tablet PO 05/26/23 07:59
BID AT 0800,1600 VERNON
Physical Exam
Vital Signs/Labs
Vital Signs
Temp Pulse Resp BP Pulse Ox
36.4 C 98 20 119/59 91
04/28/23 07:16 04/28/23 07:16 04/28/23 07:16 04/28/23 07:16 04/28/23 07:16
03/05/24 03/06/24 03/07/24
06:59 06:59 06:59
Actual Weight 368 lb 13.334 oz 364 lb 6.786 oz
04/27/23 04:02
04/27/23 04:02
APTT Cancelled 04/22/23 11:35
Magnesium 2.0 mg/dl (1.6-2.3) 04/22/23 04:50
Triglycerides 141 mg/dl (10-149) 04/22/23 04:50
LDL Cholesterol, Calc 50 mg/dl 04/22/23 04:50
VLDL Cholesterol, Calc 28 mg/dl (0-30) 04/22/23 04:50
HDL Cholesterol 66 mg/dl 04/22/23 04:50
04/21/23
17:37
Cqq-Y-Xlkdfussaoi Pept 1480
Physical Exam
Constitutional: No acute distress
EENT: Anicteric and Moist mucous membranes
Cardiovascular: JVD pressure is normal, Systolic murmur absent, Diastolic murmur absent, Rhythm/rate is irregular and Pedal edema present
Respiratory: Respiratory effort normal
GI: Soft, Distention absent, Non tender and Normal bowel sounds
Neuro/Psych: Alert and Oriented
Data Reviewed
-
Date of Service: April 28, 2023
EKG: Other (AF around 100 on tele)
[2023-04-28 09:38] VITALS: BP 124/83
[2023-04-28] MEDS: SENOKOT PO (09:38)
[2023-04-28] MEDS: CLARITIN 10 MG PO (09:39)
[2023-04-28] MEDS: FARXIGA 10 MG PO (09:39)
[2023-04-28] MEDS: COREG 25 MG PO (09:39)
[2023-04-28] MEDS: PROTONIX 40 MG PO (09:39)
[2023-04-28] MEDS: CARDIZEM CD 120 MG PO (09:39)
[2023-04-28] MEDS: CATAPRES 0.100000000000000006 MG PO (09:40)
[2023-04-28] MEDS: VIBRAMYCIN 100 MG PO (09:40)
[2023-04-28] MEDS: LASIX 40 MG PO (09:40)
[2023-04-28] MEDS: ELIQUIS 5 MG PO (09:41)
[2023-04-28] MEDS: DAKIN'S SOLUTION 0.125% 1/4 STRENGTH TOPICAL (11:02)
[2023-04-28] MEDS: TRIAMCINOLONE 0.1% OINTMENT TOPICAL (11:02)
[2023-04-28] MEDS: LMX 4 TOPICAL (11:02)
--- NOTE | 2023-04-28 11:40 | W.DCSUMMARY ---
Discharge Summary
Discharge Data
Date of Admission: 04/22/23
Date of Discharge: 04/28/23
-
Pending Results: No
Hospital Course
58 years old male who presented with history of exertional shortness of breath, new onset atrial fibrillation and increasing bilateral lower extremity edema in the last few weeks. Patient was diagnosed with persistent atrial fibrillation. He was
evaluated by make up artist. He was initially started on Cardizem drip. The started on carvedilol with titrating the dose according to blood pressure tolerance. Patient was started on blood thinner called Eliquis. His rhythm was maintained as
atrial fibrillation. He was advised to follow-up with cardiology for possible cardioversion in 4 to 6 weeks. Echocardiogram showed left ventricular ejection fraction 55 to 60% with no significant valvular disease. Patient was counseled regarding
low salt diet and to follow healthy lifestyle. He verbalized understanding. He was started on higher dose of furosemide and advised to follow-up with blood work after discharge to monitor renal function and potassium level. Patient was evaluated
by wound care nurse. He was given empiric antibiotic for cellulitis of right lower extremity. He was evaluated by vascular surgery with no intervention recommended. Patient did not tolerate Keflex treatment and was started on doxycycline. He was
advised to follow-up with wound care center for further management. Patient reported that he was able to do wound care at home. 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 Patient had nocturnal hypoxia while sleeping and he was scheduled to have a sleep study. He
did not need oxygen upon rest or ambulation. He remained hemodynamically stable and was discharged in a stable condition.
Discharge Plan
-
Patient Disposition: Home (Routine Discharge)
Discharge Diagnosis/Procedures: Persistent atrial fibrillation. Started on Coreg and diltiazem with the blood thinner called Eliquis. Avoid falls/trauma. Any head trauma you should report to the emergency room.
Primary hypertension
Acute on chronic heart failure with a preserved ejection fraction. You are seen by make up artist. You will need to follow-up with make up artist for further management/cardioversion.
Cellulitis/wound. You received antibiotic treatment. You will need few doses to finish the course. Potential side effects of doxycycline include photosensitivity, GI problems.
Please follow low salt diet to avoid worsening heart failure.
You will need check of blood work(BMP) in 5-7 days with your primary care doctor to monitor your renal function and potassium while on higher dose of Lasix.
Diet: Low Cholesterol and Low Sodium
Activity: No restrictions
Bathing Restrictions: OK to Shower
Blood Work: BMP in 5- 7 days
Activity Restrictions/Additional Instructions:
Wound Care Instructions
R leg: clean with soap and water or Dakin's PRN odor. Triamcinolone and lidocaine creams to periwound. Cut a piece of mesalt ribbon and place in base of wound followed by fluffed 2x2 gauze, secure with dry dressing, change daily and prn drainage.
Resume CircAid compression wraps, remove at bedtime.
Leg elevation when sitting
Instructions: *PCP/Other Banking Pin Adjuster Heart Failure Instructions
Referrals:
Erin Cartwright CRNP [Specified Professional Personl] - 05/05/23 2:20 pm
Miller Lu MD [Family Provider] - in one to two weeks
Prescriptions:
New
furosemide 40 mg Tablet
40 mg PO BID AT 0800,1600 Qty: 60 0RF
doxycycline hyclate 100 mg Capsule
100 mg PO Q12 Qty: 4 0RF
dapagliflozin propanediol [Farxiga] 10 mg Tablet
10 mg PO DAILY Qty: 30 0RF
Eliquis 5 mg Tablet
5 mg PO BID Qty: 60 0RF
carvedilol 25 mg Tablet
25 mg PO BID Qty: 60 0RF
diltiazem HCl 120 mg Capsule,Extended Release 24hr
120 mg PO DAILY Qty: 120 0RF
Continued
clonidine HCl 0.1 MG tablet
0.1 mg PO BID Qty: 60 0RF
garlic 100 mg Tablet
100 mg PO DAILY
ondansetron HCl 4 mg tablet
4 mg PO BID PRN (Reason: nausea/vomiting)
cyanocobalamin (vitamin B-12) [Vitamin B-12] 1,000 mcg Tablet
1,000 mcg PO DAILY
thiamine HCl (vitamin B1) [Vitamin B-1] 100 mg Tablet
100 mg PO DAILY
acetaminophen 500 mg Tablet
1,500 mg PO HS
triamcinolone acetonide 0.1 % cream
1 applic TOPICAL DAILY
Rx Instructions:
apply to legs
loratadine [Claritin] 10 mg Tablet
10 mg PO DAILY
echinacea 125 mg Tablet
250 mg PO DAILY
krill oil 500 mg Capsule
500 mg PO DAILY
Beet Root
1 tab PO DAILY
Sleep Aid
2 tab PO HS
Changed
melatonin 10 mg Tablet
10 mg PO HS Qty: 0 0RF
Discontinued
metoprolol succinate 50 MG tablet extended release 24 hr
50 mg PO DAILY
aspirin 81 mg Tablet,Delayed Release (Dr/Ec)
81 mg PO DAILY
diphenhydramine HCl [Benadryl] 25 mg Capsule
100 mg PO HS
furosemide 20 mg tablet
20 mg PO DAILY
Neosporin (rsg-tii-skkke) 3.5-400-5,000 [id number] Ointment In Packet
1 applic TOPICAL DAILY
Rx Instructions:
apply to wound
mupirocin-lidocaine 2-2 % Ointment
1 ea TOPICAL BID
Rx Instructions:
apply to legs
Leg Cramp Relief
1 tab PO HS
Discharge Orders:
Discharge Patient (As Directed); Ordered 04/28/23
Ordered By: Yolette Douglass
Care Plan Goals
Care Plan Goals:
Problem: Readiness for enhanced knowledge related to diagnosis and treatment plan
Goal: Understand your diagnosis and treatment plan needs, including medications if applicable.
Instructions: Know your diagnosis, underlying causes and treatment plan options, including medications if applicable. Consult with your health care team to learn about your diagnosis and treatment plan, including medications if applicable.
== END 2023-04-28 12:34 | disposition home or self-care (01) | DRG 291 ==
LOC: IVU 00:39
PROVIDERS: Internal Medicine; Nurse Practitioner; Physician Assistant Medical; Student in an Organized Health Care Education/Training Program; ADMITTING PHYSICIAN Hospitalist; ATTENDING PHYSICIAN Internal Medicine; EMERGENCY PHYSICIAN Emergency Medicine; FAMILY PHYSICIAN Internal Medicine; OTHER PHYSICIAN Internal Medicine; OTHER PHYSICIAN Surgery Vascular Surgery
DX: I11.0 Hypertensive heart disease with heart failure (principal); I50.33 Acute on chronic diastolic (congestive) heart failure; I48.19 Other persistent atrial fibrillation; L03.115 Cellulitis of right lower limb; L97.219 Non-pressure chronic ulcer of right calf with unspecified severity; Z68.43 Body mass index [BMI] 50.0-59.9, adult; E87.1 Hypo-osmolality and hyponatremia; K21.9 Gastro-esophageal reflux disease without esophagitis; E66.01 Morbid (severe) obesity due to excess calories; M79.89 Other specified soft tissue disorders; G47.33 Obstructive sleep apnea (adult) (pediatric); L29.9 Pruritus, unspecified; I87.2 Venous insufficiency (chronic) (peripheral); I89.0 Lymphedema, not elsewhere classified; Z91.199 Patient's noncompliance with other medical treatment and regimen due to unspecified reason; Z79.82 Long term (current) use of aspirin; Z91.040 Latex allergy status; Z88.0 Allergy status to penicillin
CPT/HCPCS: 71046; 80048; 80053; 80061; 83036; 83605; 83735; 83880; 84443; 85025; 85027; 85730; 87040; 87070; 87077; 87186; 87205; 93005; 93306; 94762; 96365; 96366; 96367; 96376; 99285; Q9950

== ENCOUNTER → 2023-05-19 07:14 | Day surgery (SDC) | payer OTHER, SELFPAY | LOC: CATH 07:14 | PROVIDERS: ATTENDING PHYSICIAN Internal Medicine; FAMILY PHYSICIAN Internal Medicine | DX: I48.91 Unspecified atrial fibrillation (principal); R06.02 Shortness of breath; I10 Essential (primary) hypertension; Z79.01 Long term (current) use of anticoagulants; Z79.84 Long term (current) use of oral hypoglycemic drugs | CPT/HCPCS: 92960; 93005 ==

== ENCOUNTER 2024-07-23 22:29 | Inpatient (IN) | payer OTHER, SELFPAY ==
[2024-07-23 16:57] LABS: % Basophils 0.6 % (0-2); % Eosinophils 1.2 % (0-6); % Immature Granulocytes 0.6 % (0-0.5); % Lymphocytes 12.6 % (20.5-51.1); % Monocytes 8.5 % (1.7-9.3); % Neutrophils 76.5 % (42.2-75.2); Absolute Basophils 0.1 10^3/uL (0-0.2); Absolute Eosinophils 0.2 10^3/uL (0-0.7); Absolute Immature Granulocytes 0.1 10^3/uL (0-0.05); Absolute Lymphocytes 1.7 10^3/uL (1.2-3.4); Absolute Monocytes 1.1 10^3/uL (0.1-0.6); Absolute Neutrophils 10.2 10^3/uL (1.4-6.5); Hematocrit 47.2 % (39.0-52.0); Hemoglobin 15.6 g/dL (13.0-18.0); Mean Corp Hgb Conc. 33.1 g/dL (33.0-37.0); Mean Corpuscular Hgb 28.9 pg (27.0-31.0); Mean Corpuscular Volume 87.4 fL (80.0-94.0); Mean Platelet Volume 9.8 fL (7.4-10.4); Nucleated Red Blood Cells % 0 % (-); Platelet Count 508 10^3/uL (130-400); Red Cell Dist. Width 14.6 % (11.5-14.5); White Blood Cell Count 13.3 10^3/uL (4.8-10.8)
[2024-07-23 17:04] LABS: Lactic Acid 1.7 mmol/L (0.7-2.0)
[2024-07-23 17:07] LABS: ALT (SGPT) 26 U/L (0-50); AST (SGOT) 25 U/L (17-59); Albumin 4.1 g/dl (3.5-5.0); Alkaline Phosphatase 471 U/L (38-126); Blood Urea Nitrogen 25 mg/dl (9-20); Calcium 9.6 mg/dl (8.4-10.2); Carbon Dioxide 31 mmol/L (22-30); Chloride 96 mmol/L (98-107); Glucose 136 mg/dl (70-99); Potassium 3.8 mmol/L (3.5-5.1); Sodium 135 mmol/L (135-145); Total Bilirubin 0.9 mg/dl (0.2-1.3); Total Protein 7.6 g/dl (6.3-8.2); eGFR > 60.00
--- NOTE | 2024-07-23 18:56 | ED.GENMED ---
History of Present Illness
General
Chief Complaint: Skin Problem
Time Seen by Provider: 07/23/24 18:41
History of Present Illness
History of Present Illness:
59-year-old male with history of chronic lower extremity edema and recurrent chronic wounds presents the emergency department for evaluation of severe left leg pain associated with increased redness and discharge from the wound. Started doxycycline
on Wednesday of this week without any improvement in symptoms. No fevers but has had chills and occasional night sweats. Denies any URI symptoms or coughing.
Past History
Past History
ED Past Medical History: GERD
ED Past Surgical History: Other
Social History
Tobacco: Non-smoker
Drug: None
Personal:
Living: with family
Employment: Employed
Family History
Family History: Other
Review of Systems
Review of Systems
Allergies reviewed?: Yes
All Other Systems: ROS reviewed and negative except as documented in HPI and ROS
Phy Exam
Physical Exam
Physical Exam:
GEN: Well appearing, NAD, WDWN
HEENT: Oral mucosa moist, no scleral icterus
Cardiac: Regular rate
Lung: No respiratory distress, no tachypnea
MSK: Massive lymphedema bilateral lower extremities, there is a chronic wound to the right anterior lower leg with granulation tissue and moderate surrounding blistering with erythema however no significant pain or discharge. There is an ulceration
to the left anterior lower leg with severe circumferential erythema of the left lower leg and foot and copious discharge
Skin: Good color, no pallor or jaundice, no rashes
Neuro: AO x3, moves all extremities freely
Psych: Calm, cooperative
Course
Orders/Labs/Results
Orders:
Orders
07/23/24 16:38
Complete Blood Count/With Diff Urgent
Comprehensive Metabolic Panel Urgent
Lactic Acid Urgent
07/23/24 18:58
Electrocardiogram (*1) Urgent
Reason for Study: QTc Monitoring
EKG- Treatment ONCE
07/23/24 19:35
Lactic Acid Urgent
Blood Culture Q30M
MARIA ISABEL Source: Blood/Venous
Specimen Description:
Blood Culture Q30M
MARIA ISABEL Source: Blood/Venous
Specimen Description:
07/23/24 19:36
Wound Culture [Wound/Abscess/Other Culture] Urgent
MARIA ISABEL Source: Leg
Specimen Description: Left
Date Specimen was Collected: 07/23/24
Time Specimen was Collected: 19:19
07/23/24 19:39
Vancomycin [Vancocin] 2,000 mg 0.9% Sodium Chloride 500 ml [Nss] 500 ml IV NOW
07/23/24 22:08
Tramadol HCl [Ultram] 50 mg PO NOW STA
07/23/24 22:09
Admit/Transfer Patient As Directed
Co-Sign Provider:
Level of Care: Inpatient admission
Assign to:: Medical/Surgical
Physician / Group: Dequan
Diagnosis: LLE Cellulitis
Reason for Hospitalization: LLE Cellulitis
Expected length of stay greater than two midnights?: Yes
ELOS- Estimated Length of Stay in days: 3
I certify the patient meets the requirements for IP care: Yes
PRN Pain Medication Management As Directed
May give lesser potent ordered pain med per pt: Yes
preference::
Protocol:: Medication orders for pain may be administered in a
manner that supports deferring to patient preference
when the pt is:
- Requesting an ordered lesser potent pain medication.
Least to most potent pain medications are defined
as: acetaminophen < NSAID < tramadol < opioids
(morphine, oxycodone, hydromorphone).
- Requesting a lesser dose of the same medication IF
ORDERED.
- Requesting a less intrusive route of administration
if both routes are prescribed by the provider (PO <
IV).
07/23/24 22:11
Code Status As Directed
Resuscitation Status: Full Code
Abnormal Lab Results
07/23/24
16:38
WBC 13.3 H 10^3/uL
(4.8-10.8)
RDW 14.6 H %
(11.5-14.5)
Plt Count 508 H 10^3/uL
(130-400)
Abs Immat Gran (auto) 0.1 H 10^3/uL
(0-0.05)
Absolute Neuts (auto) 10.2 H 10^3/uL
(1.4-6.5)
Absolute Monos (auto) 1.1 H 10^3/uL
(0.1-0.6)
Immature Gran % 0.6 H %
(0-0.5)
Neutrophils % 76.5 H %
(42.2-75.2)
Lymphocytes % 12.6 L %
(20.5-51.1)
Chloride 96 L mmol/L
(98-107)
Carbon Dioxide 31 H mmol/L
(22-30)
BUN 25 H mg/dl
(9-20)
Glucose 136 H mg/dl
(70-99)
Alkaline Phosphatase 471 H U/L
(38-126)
07/23/24 16:38
07/23/24 16:38
Vital Signs
Initial and Last Documented VS:
Initial Vital Signs
Temp Pulse Resp Pulse Ox
97.8 F 89 16 98
07/23/24 16:28 07/23/24 16:28 07/23/24 16:28 07/23/24 16:28
Last Documented Vital Signs
Temp Pulse Resp BP Pulse Ox
97.8 F 98 18 146/76 96
07/23/24 16:28 07/23/24 22:10 07/23/24 22:10 07/23/24 22:10 07/23/24 22:10
MDM/Problems Addressed
MDM/Problems Addressed:
Due to likely complicated infection given recurrent chronic wound and severe lymphedema will admit for IV antibiotics
*Critical Care Note
Total Time (30-74mins, 75-104mins- exclusive of procedures): Not Applicable
ED Attending Note
-
Portions of this chart may have been created with voice recognition software.� Occasional wrong word or��sound alike� substitutions may have occurred due to the inherent limitations of voice recognition software.
Discharge Plan
Departure
Patient Disposition: Admit
Date of Disposition: 07/23/24
Time of Disposition: 20:18
Admit to: Med/Surg
Presentation/result/management discussed w/ accepting MD/DO: Hospitalist
Discharge Problem:
Cellulitis of left leg
Prescriptions:
No Action
clonidine HCl 0.1 MG tablet
0.1 mg PO BID Qty: 60 0RF
ondansetron HCl 4 mg tablet
4 mg PO BID PRN (Reason: nausea/vomiting)
cyanocobalamin (vitamin B-12) [Vitamin B-12] 1,000 mcg Tablet
1,000 mcg PO DAILY
acetaminophen 500 mg Tablet
1,500 mg PO HS
furosemide 40 mg Tablet
40 mg PO BID AT 0800,1600 Qty: 60 0RF
dapagliflozin propanediol [Farxiga] 10 mg Tablet
10 mg PO DAILY Qty: 30 0RF
Eliquis 5 mg Tablet
5 mg PO BID Qty: 60 0RF
carvedilol 25 mg Tablet
25 mg PO BID Qty: 60 0RF
diltiazem HCl 120 mg Capsule,Extended Release 24hr
120 mg PO DAILY Qty: 120 0RF
melatonin 10 mg Tablet
10 mg PO HS Qty: 0 0RF
omeprazole 20 mg Capsule,Delayed Release(Dr/Ec)
20 mg PO DAILY
albuterol sulfate 90 mcg/actuation Hfa Aerosol Inhaler
2 puff INHALATION Q6H PRN (Reason: SOB)
fluticasone propionate 110 mcg/actuation Hfa Aerosol Inhaler
2 puff INHALATION BID
Referrals:
Miller Lu MD [Family Provider, Internal Medicine]
Interventions
Interventions:
*Risk Screen - Suicide Last Done: 07/23/24 16:28
*Neglect/Abuse Screening Last Done: 07/23/24 16:28
ED-Skin Assessment Last Done: 07/23/24 20:38
Discharge Date and Time
Print Language: EGYPTIAN
[2024-07-23 19:25] VITALS: BMI 50.9
[2024-07-23] MEDS: VANCOCIN 540 MG IV (20:24)
[2024-07-23 20:29] LABS: Lactic Acid 1.9 mmol/L (0.7-2.0)
[2024-07-23 22:10] VITALS: BP 146/76
--- NOTE | 2024-07-23 22:14 | HPS.HSE ---
Family Physician
-
Family Physician: Miller Lu
Chief Complaint
-
LLE pain, swelling, redness
History of Present Illness
Patient is a 59y M with PMH significant for morbid obesity, chronic lymphedema and hypertension who presents to ED complaining of pain, swelling and redness of the LLE x several days. Patient states that he initially developed chills and nausea
about one week ago. Several co-workers were also ill around this same time period and he assumed he had a viral syndrome. He states that he has continued with mild nausea / dry heaves and intermittent chills since that time. On Wednesday, he
noted sudden increase in swelling and redness of the L lower leg. This was quite painful and he noted several, large blisters formed over the lower leg as well.
He was seen by his PCP and started on doxycycline- which he states he has been taking q8h.
There was perhaps minimal improvement in the redness on abx. Two days ago, the blisters burst / unroofed and patient states that pain became much more severe.
Today he presented to the ED for further evaluation and treatment. He now notes several, smaller blistering lesions on the RLE as well - which are new.
Medical History
Past Medical History
Past Medical History: Reports Other
Additional Past Medical History:
Persistent Atrial Fibrillation
Chronic HFpEF
Essential Hypertension
Morbid Obesity
Suspected Sleep Apnea
Chronic Lower Extremity Lymphedema
Chronic Lower Extremity Wounds
Past Surgical History: Reports None
Social History
Tobacco: Non-smoker
Alcohol: None
Personal:
Living: With Family
Family History
Family History: Not pertinent
Allergies / Home Medications
Allergies reflects when Allergies were last updated in [facility].
Home Medications with original date entered in [facility]
Allergy/Medication List:
Allergies
Allergy/AdvReac Type Severity Reaction Status Date / Time
cephalexin (From Keflex) Allergy Rash Verified 07/23/24 16:31
latex Allergy Anaphylaxis Verified 07/23/24 16:31
Penicillins Allergy Hives Verified 07/23/24 16:31
Home Medications
clonidine HCl 0.1 mg tablet 0.1 mg PO BID #60 tabs 03/03/21
acetaminophen 500 mg tablet 1,500 mg PO HS Pain 04/21/23
cyanocobalamin (vitamin B-12) 1,000 mcg tablet (Vitamin B-12) 1,000 mcg PO DAILY Supplement 04/21/23
ondansetron HCl 4 mg tablet 4 mg PO BID PRN nausea/vomiting 04/21/23
apixaban 5 mg tablet (Eliquis) 5 mg PO BID #60 tabs 04/28/23
carvedilol 25 mg tablet 25 mg PO BID #60 tabs 04/28/23
dapagliflozin propanediol 10 mg tablet (Farxiga) 10 mg PO DAILY #30 tabs 04/28/23
diltiazem HCl 120 mg capsule,extended release 24 hr 120 mg PO DAILY #120 caps 04/28/23
furosemide 40 mg tablet 40 mg PO BID AT 0800,1600 #60 tabs 04/28/23
melatonin 10 mg tablet 10 mg PO HS Sleep #0 tabs 04/28/23
albuterol sulfate 90 mcg/actuation aerosol inhaler 2 puff inhalation Q6H PRN SOB 05/19/23
fluticasone propionate 110 mcg/actuation HFA aerosol inhaler 2 puff inhalation BID 05/19/23
omeprazole 20 mg capsule,delayed release 20 mg PO DAILY 05/19/23
Review of Systems
-
History Source: Patient
A 12 point ROS was completed and negative except as noted: Yes
Constitutional: Reports Fatigue and Chills; Denies Fever
EENT: Denies Sore Throat
Respiratory: Denies Cough or Trouble Breathing
Cardiac: Denies Chest Pain or Palpitations
Abdomen/GI: Reports Nausea; Denies Abdominal Pain, Vomiting, Diarrhea, Bloody Stools or Black Stools
: Denies Dysuria, Frequency or Flank Pain
Musculoskeletal: Reports Edema; Denies Joint Pain
Skin: Reports Other (Redness, pain, blistering. Wounds L lower leg / unroofed blisters.)
Neurological: Denies Headache
Physical Exam
Vital Signs
Vital Signs
Temp Pulse Resp BP Pulse Ox
97.8 F 98 18 146/76 96
07/23/24 16:28 07/23/24 22:10 07/23/24 22:10 07/23/24 22:10 07/23/24 22:10
Physical Exam
General: Other (59y M in mild distress due to pain.)
HEENT: Moist mucous membranes and Other (Thick neck.)
Respiratory: Other (Decreased at bases -otherwise clear.)
Cardiac: S1/S2 and Irregular Rhythm; No Murmur
GI: Other (Obese, not tender, pos BS.)
Musculoskeletal: Other (4+ bilateral LE edema. Nodular skin changes / blistering bilaterally.)
Skin: Other (Erythema L > R LE to the knee. Open wounds / unroofed blisters on the LLE.)
Neuro: AO x 3
Laboratory Results
-
07/23/24 16:38
07/23/24 16:38
Laboratory Results
Lactic Acid 1.9 mmol/L (0.7-2.0) 07/23/24 19:35
Total Bilirubin 0.9 mg/dl (0.2-1.3) 07/23/24 16:38
AST 25 U/L (17-59) 07/23/24 16:38
ALT 26 U/L (0-50) 07/23/24 16:38
Alkaline Phosphatase 471 U/L (38-126) H 07/23/24 16:38
Impression/Plan
-
A/P: Patient is a 59y M with PMH significant for A-Fib, CHF and chronic lymphedema who presents to ED complaining of LLE pain, swelling and redness x several days.
Cellulitis LLE
Chronic LE Lymphedema
Chronic LE Wounds
- Admit for further evaluation and treatment.
- Failure of outpatient antibiotics / doxycycline.
- Continue IV Vancomycin and monitor for clinical improvement.
- Wound Care evaluation for local care recommendations.
Persistent Atrial Fibrillation
- Stable. Continue current med regimen including Eliquis for stroke risk reduction.
- s/p cardioversion in April but now in recurrent / persistent A-Fib.
Chronic HFpEF
- Chronic lymphedema - but no other / new signs of decompensation.
- Continue usual BID Lasix dosing.
- Follow I/Os, daily weights, etc.
Benign Hypertension
- Stable. Continue usual home regimen.
Morbid Obesity due to excess calories
- Affects all aspects of care.
- Encourage healthy diet and activity as tolerates with goal of weight loss.
DVT Prophylaxis: On Eliquis
Code Status: Full
[2024-07-23] MEDS: ULTRAM 50 MG PO (22:27)
[2024-07-23 22:53] VITALS: BMI 50.4
[2024-07-23 22:56] VITALS: BP 143/86
--- NOTE | 2024-07-23 22:56 | PTCARENOTE ---
Pt arrived onto floor @2256. Pt AAOx3 and a stand and pivot to the bed. Pt with no complaints of SOB at this time. Pt oriented to room and call payan; will continue to monitor.
[2024-07-23 23:15] VITALS: BMI 50.4
[2024-07-23] MEDS: TYLENOL 650 MG PO (23:22)
[2024-07-24] MEDS: VANCOCIN 200 IV (05:27)
[2024-07-24 06:00] VITALS: BMI 50.5
[2024-07-24 07:36] VITALS: BP 115/60
[2024-07-24 08:07] LABS: Hematocrit 43.9 % (39.0-52.0); Hemoglobin 14.4 g/dL (13.0-18.0); Mean Corp Hgb Conc. 32.8 g/dL (33.0-37.0); Mean Corpuscular Hgb 28.8 pg (27.0-31.0); Mean Corpuscular Volume 87.8 fL (80.0-94.0); Mean Platelet Volume 9.7 fL (7.4-10.4); Platelet Count 413 10^3/uL (130-400); Red Cell Dist. Width 14.8 % (11.5-14.5); White Blood Cell Count 11.1 10^3/uL (4.8-10.8)
[2024-07-24 09:08] LABS: Blood Urea Nitrogen 21 mg/dl (9-20); Calcium 8.6 mg/dl (8.4-10.2); Carbon Dioxide 29 mmol/L (22-30); Chloride 98 mmol/L (98-107); Estimated Creatinine Clearance > 125 ml/min; Glucose 120 mg/dl (70-99); Potassium 3.6 mmol/L (3.5-5.1); Sodium 137 mmol/L (135-145); eGFR > 60.00
--- NOTE | 2024-07-24 09:45 | PHA.VAN.IN ---
Assessment
- Assessment
Renal Function: Appears similar to baseline
AUC Dosing Plan
- Dosing Variables
Dosing Weight (kg): 168.79
Dosing CrCl (ml/min): 125
Vd coefficient (L/kg): 0.5
- Empiric Dosing
Initial / Loading Dose: Vancomycin 2000 mg IV x 1 dose (07/23), Vancomycin 1000 mg IV x 1 dose (07/24)
Maintenance Regimen: Vancomycin 1250 mg IV q8h
Estimated AUC (mcg*h/mL): 458
Estimated Peak (mcg*h/mL): 25.7
Estimated Trough (mcg/ml): 13.4
Estimated Half Life (H): 6.4
- Monitoring
No levels ordered at this time: Consider level in a few days
Pharmacokinetics Vancomycin I
- -
Patient Age: 59
Patient Sex: Male
Vancomycin Day #: 1
Indication: Skin And Soft Tissue
Requesting Provider: Dr. Baires
Pertinent Antimicrobial Allergies:
Penicillin - Hives
Cephalexin - Rash
Height / Weight:
Height 6 ft
Actual Weight 168.793 kg
Pertinent Past Medical History: Morbid obesity (BMI: 50)
- Vital Signs / Lab Results
Temp Pulse Resp BP Pulse Ox
98.2 F 104 16 115/60 95
07/24/24 07:36 07/24/24 07:36 07/24/24 07:53 07/24/24 07:36 07/24/24 07:53
Lab Results - Hematology
07/23/24 07/24/24
16:38 07:39
WBC 13.3 H 11.1 H
Lab Results - Chemistry
07/23/24 07/24/24
16:38 07:39
BUN 25 H 21 H
Creatinine 0.9 0.7
Estimated Creat Clear > 125
Albumin 4.1
07/23/24 07/23/24
16:38 19:35
Lactic Acid 1.7 1.9
--- NOTE | 2024-07-24 10:00 | WOUNDNOTE ---
WO RN note: Patient admitted with LLE cellulitis. Patient lives with his who can assist patient with wound care at home if needed.
See H&P for complete history.
PMH: morbid obesity, lymphedema, HTN, HF, on Eliquis.
Wound Location and type/assessment: Patient admitted with: LLE scattered deep dermal and possible some area to subcutaneous layer broken blisters, pink with some yellow slough and pustular areas. LLE with diffuse erythema. +2 LE edema. +Pedal
pulses easily heard via portable Doppler. RLE chronic slow to heal full thickness venous ulcer.
Appetite: good.
Pressure redistribution devices in place: Wandera. t/c Bed tech and requested a [facility] [employer] Wide air bed. JACQUES Hugo to coordinate switching patient's bed. Patient can turn self in bed.
Plan: LE dressings changed. Heels off bed with pillows. t/c SPD and ordered a bariatric air chair cushion. Discussed with JACQUES Hugo.
Confirm orders with Dr. Jackson including knee high Cory wraps; defer to hospitalist if LE venous Doppler to r/o DVT indicated.
Updated care plan and will follow as needed.
Recommend follow up at wound care center upon discharge.
--- NOTE | 2024-07-24 10:02 | WOUNDNOTE ---
R CALF (ANTERIOR LATERAL)
[2024-07-24] MEDS: FARXIGA 10 MG PO (10:34)
[2024-07-24] MEDS: COREG 25 MG PO ×2 (10:34→20:28)
[2024-07-24] MEDS: PROTONIX 40 MG PO (10:34)
[2024-07-24] MEDS: ELIQUIS 5 MG PO ×2 (10:34→20:28)
[2024-07-24] MEDS: CATAPRES 0.1 MG PO ×2 (10:35→20:28)
[2024-07-24] MEDS: LASIX 40 MG PO ×2 (10:35→15:37)
[2024-07-24] MEDS: VITAMIN B-12 1000 MCG PO (10:35)
[2024-07-24] MEDS: CARDIZEM CD 120 MG PO (10:35)
[2024-07-24 11:21] LABS: Glycohemoglobin (HgbA1c) 6.7 % (4.0-5.6)
--- NOTE | 2024-07-24 11:51 | W.PN.HOSP.TC ---
Today's Communication/Plan
-
continue IV abx
wound care
ID consult
Assessment / Plan
Assessment / Plan
Assessment:
Cellulitis LLE
Chronic LE Lymphedema
Chronic LE Wounds
- Failure of outpatient antibiotics / doxycycline.
- Continue IV Vancomycin and monitor for clinical improvement.
- Wound Care following; appreciate recs. Continue compression
- ID consulted
- Dopplers ordered
Persistent Atrial Fibrillation
- Stable. Continue current med regimen including Eliquis for stroke risk reduction.
- s/p cardioversion in April but now in recurrent / persistent A-Fib.
Chronic HFpEF
- Chronic lymphedema - but no other/new signs of decompensation.
- Continue usual BID Lasix dosing.
- Follow I/Os, daily weights, etc.
Benign Hypertension
- Stable. Continue usual home regimen.
Morbid Obesity due to excess calories
- Affects all aspects of care.
- Encourage healthy diet and activity as tolerates with goal of weight loss.
DVT Prophylaxis: On Eliquis
Code Status: Full
Anticipated Discharge: > 48 hours
Subjective/Interval History
-
Date of Service: July 24, 2024
no complaints presently
LLE pain improving
Objective Data
-
Labs:
Laboratory Results
07/24/24
07:39
WBC 11.1 H
Hgb 14.4
Hct 43.9
Plt Count 413 H
Sodium 137
Potassium 3.6
Chloride 98
Carbon Dioxide 29
BUN 21 H
Creatinine 0.7
Glucose 120 H
Calcium 8.6
Vital Signs:
Vital Signs
Temp Pulse Resp BP Pulse Ox
98.2 F 104 16 115/60 95
07/24/24 07:36 07/24/24 07:36 07/24/24 07:53 07/24/24 07:36 07/24/24 07:53
Physical Exam
-
General: No Apparent Distress and Morbidly Obese
HEENT: Normocephalic and Atraumatic
Respiratory: Clear to Auscultation; Negative Wheezes
Cardiac: Regular Rhythm and S1/S2
GI: Soft
Genito-urinary: No Costovertebral Tender
Skin: Other (bilateral L>R LE blisters with area of cellulitis LLE. RLE chronic venous stasis ulcer)
Neuro: AO x 3
Psych: Calm
Data Reviewed
-
Total Time Spent with Patient (in minutes): 42
Labs: Labs Reviewed by me
[2024-07-24] MEDS: TYLENOL 650 MG PO (13:50)
[2024-07-24] MEDS: VANCOCIN 275 MG IV ×2 (13:50→21:43)
--- NOTE | 2024-07-24 15:16 | CM ---
internal audit senior manager reviewed patient's chart and met with patient and patient lives with spouse in a one story home with one step to enter, patient is independent with adl's and ambulation, no dme, plan is to home when stable, will follow for any discharge
planning needs.
PCP:Dr. Lu
Pharmacy: [facility] in [place].
[2024-07-24 15:50] VITALS: BP 111/70
[2024-07-24 20:23] VITALS: BP 111/72
[2024-07-24] MEDS: DESENEX/MITRAZOL/ZEASORB 1 APPLIC TOPICAL (20:28)
--- NOTE | 2024-07-24 21:27 | W.PN.UPDATE ---
Update Note
Progress Note Update
TT received from Dr. Jackson. Pt failed anticoagulation treatment while on Apixaban. Discontinued Apixaban and switched to Rivaroxaban 15 mg PO BID x 21 days, then 20 mg PO daily. Pharmacy assisted w/dosing, appreciate their assistance.
[2024-07-24] MEDS: MELATONIN 10 MG PO (21:43)
[2024-07-24] MEDS: ULTRAM 50 MG PO (21:44)
[2024-07-24 23:15] VITALS: BP 133/81
[2024-07-25 05:47] VITALS: BMI 51.1
[2024-07-25] MEDS: VANCOCIN 275 MG IV (05:59)
[2024-07-25 07:00] VITALS: BP 152/93
[2024-07-25 07:50] LABS: Hematocrit 42.8 % (39.0-52.0); Hemoglobin 14.1 g/dL (13.0-18.0); Mean Corp Hgb Conc. 32.9 g/dL (33.0-37.0); Mean Corpuscular Hgb 29.3 pg (27.0-31.0); Mean Corpuscular Volume 88.8 fL (80.0-94.0); Mean Platelet Volume 10.4 fL (7.4-10.4); Platelet Count 343 10^3/uL (130-400); Red Blood Cell Count 4.82 10^6/uL (4.70-6.10); White Blood Cell Count 9.9 10^3/uL (4.8-10.8)
[2024-07-25] MEDS: VITAMIN B-12 1000 MCG PO (08:12)
[2024-07-25] MEDS: XARELTO 15 MG PO ×2 (08:12→19:53)
[2024-07-25] MEDS: COREG 25 MG PO ×2 (08:12→19:53)
[2024-07-25] MEDS: CARDIZEM CD 120 MG PO (08:12)
[2024-07-25] MEDS: PROTONIX 40 MG PO (08:12)
[2024-07-25] MEDS: CATAPRES 0.1 MG PO ×2 (08:12→19:53)
[2024-07-25] MEDS: FARXIGA 10 MG PO (08:12)
[2024-07-25] MEDS: LASIX 40 MG PO ×2 (08:12→15:59)
[2024-07-25] MEDS: HYDROPHOR 1 APPLIC TOPICAL (08:18)
[2024-07-25] MEDS: DESENEX/MITRAZOL/ZEASORB 1 APPLIC TOPICAL ×2 (08:18→19:55)
[2024-07-25] MEDS: TYLENOL 650 MG PO ×2 (08:20→19:14)
[2024-07-25 08:27] LABS: Blood Urea Nitrogen 15 mg/dl (9-20); Calcium 8.4 mg/dl (8.4-10.2); Carbon Dioxide 32 mmol/L (22-30); Chloride 99 mmol/L (98-107); Estimated Creatinine Clearance > 125 ml/min; Glucose 103 mg/dl (70-99); Potassium 3.4 mmol/L (3.5-5.1); Sodium 137 mmol/L (135-145); eGFR > 60.00
--- NOTE | 2024-07-25 09:22 | CON.ID ---
Consultation
-
Date/Time Consultation Requested: July 24, 2024 1152
Date/Time Consultation Performed: July 25, 2024 7837
Requesting Provider: Dr. Concepcion Jackson
Performing Provider: Dr. Erika Dunn
Reason for Consultation: Cellulitis
Chief Complaint / Past History
Chief Complaint
Left leg swelling, redness, wounds.
History of Present Illness
59-year-old male with history of atrial fibrillation, chronic lower extremity lymphedema, chronic lower extremity wounds who presented to the hospital on July 24 due to worsening left leg pain, swelling and redness. Patient reports that
approximately a week ago he developed chills. Then he noted that his left leg started to become swollen with redness. He developed large blisters. His PCP prescribed doxycycline without significant improvement. The blisters open with draining
wounds. He complained of severe pain. In ER white count 13.3. Peripheral vascular ultrasound no DVT. Due to penicillin and cephalexin allergy, he was started on vancomycin. Patient reports unable to go to wound care center due to his work
schedule. He is compliant with outpatient compression therapy.
Past History
Additional Past Medical History:
Hypertension
Atrial fibrillation
HFpEF
Lymphedema
Chronic lower extremity wounds
Class III obesity BMI 51
Allergy History:
cephalexin (From Keflex) Allergy (Verified 07/23/24 16:31)
Rash
latex Allergy (Verified 07/23/24 16:31)
Anaphylaxis
Penicillins Allergy (Verified 07/23/24 16:31)
Hives
Medications Reviewed: Yes
Current Antibiotics:
Vancomycin day 3
Social History
Tobacco: Non-Smoker
Alcohol: None
Drug: None
Personal:
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
Family History
Family History: Not Pertinent
Review of Systems
Review of Systems
General: Negative Fever or Change in Appetite
HEENT: Negative Stiff Neck, Sinus Problems or Headache
Cardiovascular: Negative Chest Pain or Edema
Respiratory: Negative Dyspnea or Cough
Gasteroenterology: Negative Nausea, Vomiting or Diarrhea
Genital / Urological: Negative Dysuria or Flank Pain
Endocrine: Negative Weakness
All systems: All other systems were reviewed and were negative
Vital Signs
Temp Pulse Resp BP Pulse Ox
98.0 F 77 20 145/75 95
07/25/24 07:00 07/25/24 08:12 07/25/24 07:00 07/25/24 08:12 07/25/24 07:00
Physical Exam
Physical Exam
Constitutional: No Acute Distress and Obese
Eyes: No Conjunctival Hemorrhage and Sclera Anicteric
Cardiovascular: Regular Rate and S1/S2
Pulmonary: Clear
Gastrointestinal: Soft, Non Tender, Non Distended and Normal Bowel Sounds
Genito-Urinary: Negative CVA Tenderness
Extremities: Edema (LLE >RLE with lymphedema changes) and Erythema (LLE + bright erythema from foot to 1/[address] up butcher)
Wound: Other (Reviewed wound photos: erosive wounds on anterior and posterior LLE with yellow slough)
Neurological: AO x 3
Lab / Diagnostic Study Results
07/25/24 07:21
07/25/24 07:21
Abs Immat Gran (auto) 0.1 10^3/uL (0-0.05) H 07/23/24 16:38
Absolute Neuts (auto) 10.2 10^3/uL (1.4-6.5) H 07/23/24 16:38
Absolute Lymphs (auto) 1.7 10^3/uL (1.2-3.4) 07/23/24 16:38
Absolute Monos (auto) 1.1 10^3/uL (0.1-0.6) H 07/23/24 16:38
Absolute Basos (auto) 0.1 10^3/uL (0-0.2) 07/23/24 16:38
Immature Gran % 0.6 % (0-0.5) H 07/23/24 16:38
Neutrophils % 76.5 % (42.2-75.2) H 07/23/24 16:38
Lymphocytes % 12.6 % (20.5-51.1) L 07/23/24 16:38
Monocytes % 8.5 % (1.7-9.3) 07/23/24 16:38
Eosinophils % 1.2 % (0-6) 07/23/24 16:38
Basophils % 0.6 % (0-2) 07/23/24 16:38
Lactic Acid 1.9 mmol/L (0.7-2.0) 07/23/24 19:35
Microbiology Results
Micro:
07/23/24 23:23 MRSA Screen - Final
Nose No Methicillin Resistant Staphylococcus aureus isolated.
07/23/24 19:35 Blood Culture - Preliminary
Blood/Venous No Growth in 24 hours- Final report to follow
07/23/24 19:35 Blood Culture - Preliminary
Blood/Venous No Growth in 24 hours- Final report to follow
07/23/24 19:36 Wound Culture - Pending
Leg - Left Gram Stain - Preliminary
Assessment / Plan
# LLE cellulitis
# LLE wounds infection
# LE lymphedema
# Class III obesity
# Allergies: PCN, cephalosporin
- Appreciate wound care recs.
- DC Vancomycin
- Start meropenem 500mg IV q6h.
- When tolerable, apply LAURA-Wrap compression
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
Hypertension
Atrial fibrillation
HFpEF
Lymphedema
Chronic lower extremity wounds
Class III obesity BMI 51
--- NOTE | 2024-07-25 09:30 | W.PN.HOSP.TC ---
Addendum entered and electronically signed by Concepcion Jackson MD 07/25/24 10:24:
hypokalemia repleted
Original Note:
Today's Communication/Plan
-
continue wound care, compression and IV Meropenem
Assessment / Plan
Assessment / Plan
Assessment:
Cellulitis LLE
Chronic LE Lymphedema
Chronic LE Wounds
- Failure of outpatient antibiotics/doxycycline.
- Continue IV Meropenem per ID. Monitor for clinical improvement.
- Wound Care following; appreciate recs. Continue compression
Nonocclusive thrombus within the left femoral vein
- in setting of Eliquis; felt to be Eliquis failure. Switched to Xarelto
Persistent Atrial Fibrillation
- Stable. Continue current med regimen including Xarelto for stroke risk reduction.
- s/p cardioversion in April but now in recurrent / persistent A-Fib.
- OP planned for Tikosyn initiation
Chronic HFpEF
- Chronic lymphedema - but no other/new signs of decompensation.
- Continue usual BID Lasix dosing.
- Follow I/Os, daily weights, etc.
Benign Hypertension
- Stable. Continue usual home regimen.
Morbid Obesity due to excess calories
- Affects all aspects of care.
- Encourage healthy diet and activity as tolerates with goal of weight loss.
DVT Prophylaxis: Xarelto
Code Status: Full
Anticipated Discharge: > 48 hours
Subjective/Interval History
-
Date of Service: July 25, 2024
resting comfortably, pain controlled
Objective Data
-
Labs:
Laboratory Results
07/25/24
07:21
WBC 9.9
Hgb 14.1
Hct 42.8
Plt Count 343
Sodium 137
Potassium 3.4 L
Chloride 99
Carbon Dioxide 32 H
BUN 15
Creatinine 0.6 L
Glucose 103 H
Calcium 8.4
Vital Signs:
Vital Signs
Temp Pulse Resp BP Pulse Ox
98.0 F 77 20 145/75 95
07/25/24 07:00 07/25/24 08:12 07/25/24 07:00 07/25/24 08:12 07/25/24 07:00
I&O
07/24/24 07/25/24 07/26/24
06:59 06:59 06:59
Intake Total 1919
Output Total 2224
Balance -305 / -305
Physical Exam
-
General: No Apparent Distress
HEENT: Normocephalic and Atraumatic
Respiratory: Wheezes
Cardiac: Irregular Rhythm
GI: Soft
Genito-urinary: No Costovertebral Tender
Musculoskeletal: Other (LLE >RLE with lymphedema changes) and Erythema (LLE + bright erythema from foot to 1/[address] butcher))
Neuro: AO x 3
Psych: Calm
Data Reviewed
-
Total Time Spent with Patient (in minutes): 43
Labs: Labs Reviewed by me
--- NOTE | 2024-07-25 09:40 | CM ---
home health manager reviewed patient's chart and met with patient and patient lives with spouse in a one story home with one step to enter, patient is independent with adl's and ambulation, no dme, plan home when stable.
PCP: Dr. Lu
Pharmacy: [facility] in [place]
Cost of Xarelto is $40 per month.
[2024-07-25] MEDS: KCL 40 MEQ PO (11:49)
[2024-07-25] MEDS: MERREM 500 MG IV ×3 (11:50→22:02)
[2024-07-25] MEDS: STERILE WATER FOR INJECTION 10 ML IV ×3 (11:50→22:01)
--- NOTE | 2024-07-25 12:47 | PN.CDI ---
CDI
- -
CDI:
Physician Documentation Request
Admit Date: 07/23/24 22:29
Dear Doctor Renetta,
Clinical Indicators:
Patient admitted with cellulitis LLE with failure of outpatient antibiotics.
07/23 H & P, '...he initially developed chills and nausea about one week ago...has continued with mild nausea / dry heaves and intermittent chills since that time'
07/25 ID consult, 'LLE wounds infection'
WBC on admission:
07/23/24
16:38
WBC 13.3 H
HR trend on admission:
07/23/24
16:28 07/23/24
22:10 07/23/24
22:56
Pulse 89 98 104
07/24/24
07:36
Pulse 104
Please clarify which of the following most accurately describes the status of the patient's infection:
Sepsis, POA
- Systemic manifestations of infection, with 2 or more SIRS criteria which include:
- Fever >100.9 degrees F or hypothermia < 96.8 degrees F
- Leukocytosis - WBC > 12,000 or leukopenia - WBC < 4,000 or > 10% bands
- Tachycardia > 90 beats per minute
- Tachypnea - RR > 20 breaths per minute or PaCO2 , 32mmHg
Source: Merck Manual 2013
Cellulitis/LLE wound infection Only, Without Systemic Illness
Other, please specify
Use of terms such as suspected, likely, concern for, or probable (associated with a specific diagnosis that is being evaluated, monitored, or treated as if it exists) are acceptable and can be coded in the inpatient setting, when documented at the
time of discharge.
Thank you,
RICARDO Monge RN
CDI Specialist
available via tiger text
Please use your independent medical judgment in providing your response.
[2024-07-25 15:18] VITALS: BP 124/84
[2024-07-25] MEDS: BENADRYL 25 MG PO (21:00)
[2024-07-25] MEDS: ULTRAM 50 MG PO (22:01)
[2024-07-25] MEDS: MELATONIN 10 MG PO (22:01)
[2024-07-25 23:36] VITALS: BP 139/80
[2024-07-26] MEDS: STERILE WATER FOR INJECTION 10 ML IV ×4 (04:11→22:01)
[2024-07-26] MEDS: MERREM 500 MG IV ×4 (04:11→22:01)
[2024-07-26 05:17] VITALS: BMI 50.1
[2024-07-26 07:15] VITALS: BP 96/68
--- NOTE | 2024-07-26 07:57 | W.PN.HOSP.TC ---
Today's Communication/Plan
-
continue Abx per ID
Assessment / Plan
Assessment / Plan
Assessment:
sepsis POA (tachycardia, leukocytosis)
Cellulitis LLE
Chronic LE Lymphedema
Chronic LE Wounds
- Failure of outpatient antibiotics/doxycycline.
- Continue IV Meropenem per ID. Monitor for clinical improvement.
- Wound Care following; appreciate recs. Continue compression
Nonocclusive thrombus within the left femoral vein
- in setting of Eliquis; felt to be Eliquis failure. Switched to Xarelto
Persistent Atrial Fibrillation
- Stable. Continue current med regimen including Xarelto for stroke risk reduction.
- s/p cardioversion in April but now in recurrent/persistent A-Fib.
- OP planned for Tikosyn initiation
Chronic HFpEF
- Chronic lymphedema - but no other/new signs of decompensation.
- Continue usual BID Lasix dosing.
- Follow I/Os, daily weights, etc.
Benign Hypertension
- Stable. Continue usual home regimen.
Morbid Obesity due to excess calories
- Affects all aspects of care.
- Encourage healthy diet and activity as tolerates with goal of weight loss.
DVT Prophylaxis: Xarelto
Code Status: Full
Anticipated Discharge: > 48 hours
Subjective/Interval History
-
Date of Service: July 26, 2024
no complaints
Objective Data
-
Labs:
Laboratory Results
07/26/24
07:20
WBC Pending
Hgb Pending
Hct Pending
Plt Count Pending
Sodium Pending
Potassium Pending
Chloride Pending
Carbon Dioxide Pending
BUN Pending
Creatinine Pending
Glucose Pending
Calcium Pending
Vital Signs:
Vital Signs
Temp Pulse Resp BP Pulse Ox
98.4 F 99 18 96/68 93
07/26/24 07:15 07/26/24 07:15 07/26/24 07:15 07/26/24 07:15 07/26/24 07:15
I&O
07/25/24 07/26/24 07/27/24
06:59 06:59 06:59
Intake Total 1920 / 1920 480 / 480
Output Total 2225 / 2225 1100 / 1100
Balance -305 / -305 -620 / -620
Physical Exam
-
General: No Apparent Distress
HEENT: Normocephalic and Atraumatic
Respiratory: Negative Wheezes
Cardiac: Regular Rhythm and S1/S2
GI: Soft and Nontender
Genito-urinary: No Costovertebral Tender
Neuro: AO x 3
Psych: Calm
Data Reviewed
-
Total Time Spent with Patient (in minutes): 41
Labs: Labs Reviewed by me
[2024-07-26 07:59] LABS: Hematocrit 40.7 % (39.0-52.0); Hemoglobin 13.2 g/dL (13.0-18.0); Mean Corp Hgb Conc. 32.4 g/dL (33.0-37.0); Mean Corpuscular Hgb 28.8 pg (27.0-31.0); Mean Corpuscular Volume 88.9 fL (80.0-94.0); Mean Platelet Volume 9.8 fL (7.4-10.4); Platelet Count 397 10^3/uL (130-400); Red Blood Cell Count 4.58 10^6/uL (4.70-6.10); Red Cell Dist. Width 14.8 % (11.5-14.5); White Blood Cell Count 7.6 10^3/uL (4.8-10.8)
[2024-07-26] MEDS: CATAPRES PO (08:08)
[2024-07-26] MEDS: CARDIZEM CD PO (08:08)
[2024-07-26] MEDS: XARELTO 15 MG PO ×2 (08:30→19:46)
[2024-07-26] MEDS: DESENEX/MITRAZOL/ZEASORB 1 APPLIC TOPICAL (08:30)
[2024-07-26] MEDS: VITAMIN B-12 1000 MCG PO (08:30)
[2024-07-26] MEDS: FARXIGA 10 MG PO (08:30)
[2024-07-26] MEDS: PROTONIX 40 MG PO (08:30)
[2024-07-26] MEDS: HYDROPHOR 1 APPLIC TOPICAL (08:32)
[2024-07-26 08:46] LABS: Blood Urea Nitrogen 14 mg/dl (9-20); Calcium 8.5 mg/dl (8.4-10.2); Carbon Dioxide 30 mmol/L (22-30); Chloride 101 mmol/L (98-107); Estimated Creatinine Clearance > 125 ml/min; Glucose 104 mg/dl (70-99); Potassium 3.9 mmol/L (3.5-5.1); Sodium 137 mmol/L (135-145); eGFR > 60.00
[2024-07-26 09:10] VITALS: BP 126/87
[2024-07-26] MEDS: CARDIZEM CD 120 MG PO (09:21)
[2024-07-26] MEDS: COREG 25 MG PO ×2 (09:21→19:46)
[2024-07-26] MEDS: LASIX 40 MG PO ×2 (09:21→17:24)
--- NOTE | 2024-07-26 10:53 | W.PN.ID1 ---
Date of Service
Date of Service: July 26, 2024
Today's Communication
- Continue meropenem 500mg IV q6h (d2)
Assessment / Plan
# LLE cellulitis, improving
# LLE wounds infection
# LE lymphedema
# Class III obesity
# Allergies: PCN, cephalosporin
- Appreciate wound care recs.
- Wound cx Pseudomonas, Proteus
- Continue meropenem 500mg IV q6h (d2)
- When tolerable, apply LAURA-Wrap compression
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
Hypertension
Atrial fibrillation
HFpEF
Lymphedema
Chronic lower extremity wounds
Class III obesity BMI 51
Chief Complaint
-: Cellulitis
Subjective / Review of Systems
Tolerating meropenem.
Vital Signs / Physical Exam
Vital Signs
Vital Signs
Temp Pulse Resp BP Pulse Ox
98.4 F 92 18 126/87 93
07/26/24 07:15 07/26/24 09:21 07/26/24 07:15 07/26/24 09:21 07/26/24 07:15
Physical Exam
Constitutional: No Acute Distress and Comfortable
Pulmonary: Clear
Gastrointestinal: Soft, Non Tender and Non Distended
Extremities: Edema (L>RLE lymphedema) and Erythema (L foot to lower butcher erythema improving. )
Wound: Other (LLE large wounds with yellow slough. )
Neurological: AO x 3
Objective Data
Lab Data
Lab Results
07/26/24 07:20
07/26/24 07:20
Estimated Creat Clear > 125 ml/min 07/26/24 07:20
Lactic Acid 1.9 mmol/L (0.7-2.0) 07/23/24 19:35
Total Bilirubin 0.9 mg/dl (0.2-1.3) 07/23/24 16:38
AST 25 U/L (17-59) 07/23/24 16:38
ALT 26 U/L (0-50) 07/23/24 16:38
Alkaline Phosphatase 471 U/L (38-126) H 07/23/24 16:38
Most recent labs reviewed.
Micro Results:
07/23/24 19:36 Wound Culture - Preliminary
Leg - Left Pseudomonas aeruginosa
Proteus species
Gram Stain - Preliminary
07/23/24 19:35 Blood Culture - Preliminary
Blood/Venous No Growth in 48 hours- Final report to follow
07/23/24 19:35 Blood Culture - Preliminary
Blood/Venous No Growth in 48 hours- Final report to follow
07/23/24 23:23 MRSA Screen - Final
Nose No Methicillin Resistant Staphylococcus aureus isolated.
[2024-07-26] MEDS: TYLENOL 650 MG PO (13:04)
[2024-07-26 15:54] VITALS: BP 124/89
--- NOTE | 2024-07-26 16:13 | CM ---
Patient seen at bedside and CM discussed with patient and need for IV antiiotics per Dr. Dunn. CM will send clinical information to [facility]. patient stated that he thought he would be able to do wound care but would consider [facility] if he had
concerns about wound care. Patient will need scripts for wound care supplies if he wants to do his own wound care. CM will continue to follow for discharge planning needs.
Plan; referral to [facility] for IV antibiotic; pending cost
[2024-07-26] MEDS: DESENEX/MITRAZOL/ZEASORB TOPICAL (19:46)
[2024-07-26] MEDS: CATAPRES 0.1 MG PO (19:46)
[2024-07-26 19:49] VITALS: BP 145/86
[2024-07-26] MEDS: MELATONIN 10 MG PO (22:01)
[2024-07-26] MEDS: ULTRAM 50 MG PO (22:01)
[2024-07-26 23:15] VITALS: BP 120/75
[2024-07-27] MEDS: MERREM 500 MG IV (03:39)
[2024-07-27] MEDS: STERILE WATER FOR INJECTION 10 ML IV (03:40)
[2024-07-27 07:42] LABS: Hematocrit 43.1 % (39.0-52.0); Hemoglobin 14.6 g/dL (13.0-18.0); Mean Corp Hgb Conc. 33.9 g/dL (33.0-37.0); Mean Corpuscular Hgb 29.4 pg (27.0-31.0); Mean Corpuscular Volume 86.9 fL (80.0-94.0); Mean Platelet Volume 10.6 fL (7.4-10.4); Platelet Count 368 10^3/uL (130-400); Red Blood Cell Count 4.96 10^6/uL (4.70-6.10); Red Cell Dist. Width 14.9 % (11.5-14.5); White Blood Cell Count 5.9 10^3/uL (4.8-10.8)
[2024-07-27 07:44] VITALS: BP 140/68
[2024-07-27] MEDS: PROTONIX 40 MG PO (08:42)
[2024-07-27] MEDS: FARXIGA 10 MG PO (08:42)
[2024-07-27] MEDS: DESENEX/MITRAZOL/ZEASORB 1 APPLIC TOPICAL ×2 (08:42→20:19)
[2024-07-27] MEDS: CATAPRES 0.1 MG PO ×2 (08:43→20:17)
[2024-07-27] MEDS: CARDIZEM CD 120 MG PO (08:43)
[2024-07-27] MEDS: LASIX 40 MG PO ×2 (08:43→17:05)
[2024-07-27] MEDS: VITAMIN B-12 1000 MCG PO (08:43)
[2024-07-27] MEDS: COREG 25 MG PO ×2 (08:44→20:18)
[2024-07-27] MEDS: XARELTO 15 MG PO ×2 (08:44→20:17)
[2024-07-27] MEDS: HYDROPHOR 1 APPLIC TOPICAL (08:44)
[2024-07-27 09:13] VITALS: BMI 50.2
--- NOTE | 2024-07-27 09:48 | W.PN.ID1 ---
Date of Service
Date of Service: July 27, 2024
Today's Communication
See below
Assessment / Plan
# LLE cellulitis, improving
# LLE wounds infection
# BLE lymphedema
# Class III obesity
# Allergies: PCN, cephalosporin
- Appreciate wound care recs.
- Wound cx Pseudomonas (resistant to FQ), Proteus, GBS
- Continue meropenem 1g IV q8h (d3) through 08/04/24
- Place midline.
- Infusion sheet submitted to case management
- Apply LAURA-Wrap compression
- Will benefit [facility]
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
Hypertension
Atrial fibrillation
HFpEF
Lymphedema
Chronic lower extremity wounds
Class III obesity BMI 51
Chief Complaint
-: Cellulitis
Subjective / Review of Systems
Tolerating meropenem
Vital Signs / Physical Exam
Vital Signs
Vital Signs
Temp Pulse Resp BP Pulse Ox
97.9 F 107 18 140/68 94
07/27/24 07:44 07/27/24 07:44 07/27/24 07:44 07/27/24 07:44 07/27/24 07:44
Physical Exam
Constitutional: No Acute Distress and Comfortable
Pulmonary: Clear
Gastrointestinal: Soft, Non Tender and Non Distended
Extremities: Edema (L>RLE lymphedema) and Erythema (L foot to lower butcher erythema improving. )
Wound: Other (LLE large wounds with yellow slough, decreased drainage )
Neurological: AO x 3
Objective Data
Lab Data
Lab Results
07/27/24 07:15
Estimated Creat Clear Cancelled 07/27/24 07:15
Lactic Acid 1.9 mmol/L (0.7-2.0) 07/23/24 19:35
Total Bilirubin 0.9 mg/dl (0.2-1.3) 07/23/24 16:38
AST 25 U/L (17-59) 07/23/24 16:38
ALT 26 U/L (0-50) 07/23/24 16:38
Alkaline Phosphatase 471 U/L (38-126) H 07/23/24 16:38
Most recent labs reviewed.
Micro Results:
07/23/24 19:36 Wound Culture - Preliminary
Leg - Left Pseudomonas aeruginosa
Proteus species
Streptococcus agalactiae
Gram Stain - Preliminary
07/23/24 19:35 Blood Culture - Preliminary
Blood/Venous No Growth in 72 hours- Final report to follow
07/23/24 19:35 Blood Culture - Preliminary
Blood/Venous No Growth in 72 hours- Final report to follow
07/23/24 23:23 MRSA Screen - Final
Nose No Methicillin Resistant Staphylococcus aureus isolated.
Care Review
Plan reviewed with: Physician (Dr. Jackson)
[2024-07-27 10:30] LABS: Blood Urea Nitrogen 13 mg/dl (9-20); Calcium 8.8 mg/dl (8.4-10.2); Carbon Dioxide 33 mmol/L (22-30); Chloride 100 mmol/L (98-107); Estimated Creatinine Clearance > 125 ml/min; Glucose 100 mg/dl (70-99); Potassium 4.2 mmol/L (3.5-5.1); Sodium 138 mmol/L (135-145); eGFR > 60.00
[2024-07-27] MEDS: SANTYL OINTMENT 1 APPLIC TOPICAL (10:30)
--- NOTE | 2024-07-27 10:45 | WOUNDNOTE ---
RLE (ANTERIOR LATERAL)
--- NOTE | 2024-07-27 10:47 | WOUNDNOTE ---
WOC RN note: Patient's LE edema and drainage less. LE erythema less. Ulcers less yellow. LE wound care done. Bilateral knee high Cory wraps applied. Skin on heels and sacrum intact. Bariatric air chair cushion placed under Le's. Patient is on a
[facility] Wide air bed. Patient plans to follow up at [facility]. Will follow as needed.
--- NOTE | 2024-07-27 12:51 | W.PN.HOSP.TC ---
Today's Communication/Plan
-
continue IV Meropenem
likely dc per case management in 24 hours when home IV antibiotics are setup/finalized
Assessment / Plan
Assessment / Plan
Assessment:
sepsis POA (tachycardia, leukocytosis)
Cellulitis LLE
Chronic LE Lymphedema
Chronic LE Wounds
- Failure of outpatient antibiotics/doxycycline.
- Continue IV Meropenem per ID; midline placed, home antibiotics being setup.
- Wound Care following; appreciate recs. Continue compression
Nonocclusive thrombus within the left femoral vein
- in setting of Eliquis; felt to be Eliquis failure. Switched to Xarelto
Persistent Atrial Fibrillation
- Stable. Continue current med regimen including Xarelto for stroke risk reduction.
- s/p cardioversion in April but now in recurrent/persistent A-Fib.
- OP plan is for Tikosyn initiation per EP (discussed with Dr. Reis via phone)
Chronic HFpEF
- Chronic lymphedema - but no other/new signs of decompensation.
- Continue usual BID Lasix dosing.
- Follow I/Os, daily weights, etc.
Benign Hypertension
- Stable. Continue usual home regimen.
Morbid Obesity due to excess calories
- Affects all aspects of care.
- Encourage healthy diet and activity as tolerates with goal of weight loss.
DVT Prophylaxis: Xarelto
Code Status: Full
Anticipated Discharge: 24 - 48 hours
Subjective/Interval History
-
Date of Service: July 27, 2024
resting comfortably, no complaints
Objective Data
-
Labs:
Laboratory Results
07/27/24 07/27/24
07:15 08:49
WBC 5.9
Hgb 14.6
Hct 43.1
Plt Count 368
Sodium Cancelled 138
Potassium Cancelled 4.2
Chloride Cancelled 100
Carbon Dioxide Cancelled 33 H
BUN Cancelled 13
Creatinine Cancelled 0.6 L
Glucose Cancelled 100 H
Calcium Cancelled 8.8
Vital Signs:
Vital Signs
Temp Pulse Resp BP Pulse Ox
97.9 F 107 18 140/68 94
07/27/24 07:44 07/27/24 07:44 07/27/24 07:44 07/27/24 07:44 07/27/24 07:44
I&O
07/26/24 07/27/24 07/28/24
06:59 06:59 06:59
Intake Total 480 / 480 1280 / 1280
Output Total 1100 / 1100 1850 / 1850
Balance -620 / -620 -570 / -570
Physical Exam
-
General: No Apparent Distress
HEENT: Normocephalic and Atraumatic
Respiratory: Negative Wheezes
Cardiac: Regular Rhythm and S1/S2
Genito-urinary: No Costovertebral Tender
Musculoskeletal: No Edema
Skin: Other (Edema (L>RLE lymphedema) and Erythema (L foot to lower butcher erythema improving. LLE large wounds with yellow slough, decreased drainage )
Neuro: AO x 3
Psych: Calm
Data Reviewed
-
Total Time Spent with Patient (in minutes): 41
Labs: Labs Reviewed by me
--- NOTE | 2024-07-27 13:29 | CM ---
Addendum entered by Shi Forrester 07/27/24 15:29:
Per Isa at [facility] unable to meet with patient today will meet with patient tomorrow.
Original Note:
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
then covered 100%. Patient has declined visiting nursing but plans on following up with the wound care center.
Plan; Home with IV ABX.
[2024-07-27] MEDS: MERREM 1000 MG IV ×2 (14:47→22:24)
[2024-07-27] MEDS: STERILE WATER FOR INJECTION 20 ML IV ×2 (14:48→22:24)
[2024-07-27 15:26] VITALS: BP 120/80
[2024-07-27 20:15] VITALS: BP 122/77
[2024-07-27] MEDS: TYLENOL 650 MG PO (20:17)
[2024-07-27] MEDS: ULTRAM 50 MG PO (22:23)
[2024-07-27] MEDS: MELATONIN 10 MG PO (22:24)
[2024-07-27 23:05] VITALS: BP 126/88
[2024-07-28] MEDS: STERILE WATER FOR INJECTION 20 ML IV ×2 (05:20→13:57)
[2024-07-28 05:21] LABS: Hematocrit 40.4 % (39.0-52.0); Hemoglobin 13.2 g/dL (13.0-18.0); Mean Corp Hgb Conc. 32.7 g/dL (33.0-37.0); Mean Corpuscular Hgb 28.8 pg (27.0-31.0); Mean Corpuscular Volume 88.2 fL (80.0-94.0); Mean Platelet Volume 9.4 fL (7.4-10.4); Platelet Count 427 10^3/uL (130-400); Red Blood Cell Count 4.58 10^6/uL (4.70-6.10); Red Cell Dist. Width 14.8 % (11.5-14.5); White Blood Cell Count 6.8 10^3/uL (4.8-10.8)
[2024-07-28] MEDS: MERREM 1000 MG IV ×2 (05:21→13:57)
[2024-07-28 05:28] VITALS: BMI 51.1
[2024-07-28 05:47] LABS: Blood Urea Nitrogen 15 mg/dl (9-20); Calcium 8.6 mg/dl (8.4-10.2); Carbon Dioxide 34 mmol/L (22-30); Chloride 102 mmol/L (98-107); Estimated Creatinine Clearance > 125 ml/min; Glucose 111 mg/dl (70-99); Potassium 4.5 mmol/L (3.5-5.1); Sodium 137 mmol/L (135-145); eGFR > 60.00
[2024-07-28 07:09] VITALS: BP 104/66
[2024-07-28] MEDS: FARXIGA 10 MG PO (08:31)
[2024-07-28] MEDS: VITAMIN B-12 1000 MCG PO (08:31)
[2024-07-28] MEDS: HYDROPHOR 1 APPLIC TOPICAL (08:31)
[2024-07-28] MEDS: XARELTO 15 MG PO (08:31)
[2024-07-28] MEDS: PROTONIX 40 MG PO (08:31)
[2024-07-28] MEDS: LASIX 40 MG PO (08:31)
[2024-07-28] MEDS: CARDIZEM CD 120 MG PO (08:31)
[2024-07-28] MEDS: DESENEX/MITRAZOL/ZEASORB 1 APPLIC TOPICAL (08:32)
[2024-07-28] MEDS: COREG 25 MG PO (08:33)
[2024-07-28] MEDS: CATAPRES PO (08:33)
--- NOTE | 2024-07-28 08:44 | W.PN.HOSP.TC ---
Today's Communication/Plan
-
Discharge home today
Assessment / Plan
Assessment / Plan
Impression:
59 y/o M with Lymphedema with LLE wound/cellulitis on IV�Meropenem�per ID. Home IV antibiotics being setup and midline placed -
possible discharge on Wednesday. Also acute DVT � switched to�Xarelto as failed Eliquis (on Eliquis at home for Afib).�
Arrangement made for home infusion, patient will be discharged home today to complete antibiotic still August 04.
Assessment:
sepsis POA (tachycardia, leukocytosis)
Cellulitis LLE
Chronic LE Lymphedema
Chronic LE Wounds
- Failure of outpatient antibiotics/doxycycline.
- Continue IV Meropenem per ID; midline placed, home antibiotics being setup.
- Wound Care following; appreciate recs. Continue compression
Nonocclusive thrombus within the left femoral vein
- in setting of Eliquis; felt to be Eliquis failure. Switched to Xarelto
Persistent Atrial Fibrillation
- Stable. Continue current med regimen including Xarelto for stroke risk reduction.
- s/p cardioversion in April but now in recurrent/persistent A-Fib.
- OP plan is for Tikosyn initiation per EP (discussed with Dr. Reis via phone)
Chronic HFpEF
- Chronic lymphedema - but no other/new signs of decompensation.
- Continue usual BID Lasix dosing.
- Follow I/Os, daily weights, etc.
Benign Hypertension
- Stable. Continue usual home regimen.
Morbid Obesity due to excess calories
- Affects all aspects of care.
- Encourage healthy diet and activity as tolerates with goal of weight loss.
DVT Prophylaxis: Xarelto
Code Status: Full
Total time spent on today's encounter was 65 minutes which included time spent in counseling the patient/family regarding diagnosis and treatment plan as listed above, goals of care, and symptom management. Case was discussed with nursing staff,
specialists, and care coordinators/case management. All labs and imaging personally reviewed by me. Remainder the time spent in detailed review of previous records, lab data, imaging, and other medical provider documentation.
Anticipated Discharge: Today
Subjective/Interval History
-
Date of Service: July 28, 2024
Patient seen and examined at bedside, at bedside.
Still complaining of bilateral lower extremity pain but otherwise denies any chest pain or shortness of breath, no abdominal pain, no nausea, no vomiting, no diarrhea or constipation.
Objective Data
-
Labs:
Laboratory Results
07/28/24
05:02
WBC 6.8
Hgb 13.2
Hct 40.4
Plt Count 427 H
Sodium 137
Potassium 4.5
Chloride 102
Carbon Dioxide 34 H
BUN 15
Creatinine 0.6 L
Glucose 111 H
Calcium 8.6
Vital Signs:
Vital Signs
Temp Pulse Resp BP Pulse Ox
98.1 F 105 18 104/60 93
07/28/24 07:09 07/28/24 07:09 07/28/24 07:09 07/28/24 08:33 07/28/24 07:09
I&O
07/27/24 07/28/24 07/29/24
06:59 06:59 06:59
Intake Total 1280 / 1280 1380 / 1380
Output Total 1850 / 1850 850 / 850
Balance -570 / -570 530 / 530
Physical Exam
-
General: Well Developed, Well Nourished, No Apparent Distress and Comfortable
HEENT: Normocephalic, Atraumatic, Moist Mucous Membranes, No Ptosis, PERRLA and Nose Appears Normal
Respiratory: Rales and Non Labored Respirations
Cardiac: S1/S2 and Irregular Rhythm
Breast: Deferred by me
GI: Soft, Nontender, Nondistended and Normal Bowel Sounds
Genito-urinary: No Costovertebral Tender
Musculoskeletal: No Clubbing, No Cyanosis, Edema, Right Lower Extrem, Edema, Left Lower Extrem and Other (Bilateral lymphedema, redness.)
Skin: Warm
Neuro: Awake, Alert, Oriented, AO x 3 and No Motor Deficits
Psych: Calm
Data Reviewed
-
Diagnostic Radiology: Image personally visualized and interpreted and Report Reviewed by me
CT Scan: Image personally visualized and interpreted and Report Reviewed by me
Ultrasound: Image personally visualized and interpreted and Report Reviewed by me
MRI: Image personally visualized and interpreted and Report Reviewed by me
Medical Tests (Nuc Med, Echo etc): Image personally visualized and interpreted and Report Reviewed by me
Labs: Labs Reviewed by me
Old Records: Reviewed
--- NOTE | 2024-07-28 09:32 | W.PN.ID1 ---
Date of Service
Date of Service: July 28, 2024
Today's Communication
- Continue meropenem 1g IV q8h (d4) through 08/04/24
- Has midline.
- Stable for dc from ID perspective when outpatient iv antibiotics arranged
Assessment / Plan
# LLE cellulitis, improving
# LLE wounds infection
# BLE lymphedema
# Class III obesity
# Allergies: PCN, cephalosporin
- Appreciate wound care recs.
- Wound cx Pseudomonas (resistant to FQ), Proteus, GBS
- Continue meropenem 1g IV q8h (d4) through 08/04/24
- Has midline.
- Infusion sheet submitted to case management 07/27
- Apply LAURA-Wrap compression
- Will benefit follow-up at [facility]
- Stable for dc from ID perspective when outpatient iv antibiotics arranged
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
Hypertension
Atrial fibrillation
HFpEF
Lymphedema
Chronic lower extremity wounds
Class III obesity BMI 51
Chief Complaint
-: Cellulitis
Subjective / Review of Systems
afebrile
bp stable
no events overnight
cellulitis much improved
Vital Signs / Physical Exam
Vital Signs
Vital Signs
Temp Pulse Resp BP Pulse Ox
98.1 F 105 18 104/60 93
07/28/24 07:09 07/28/24 07:09 07/28/24 07:09 07/28/24 08:33 07/28/24 07:09
Physical Exam
Constitutional: No Acute Distress, Chronically Ill and Obese
Cardiovascular: Regular Rate and S1/S2; Negative Murmur or Rub
Pulmonary: Clear and Symmetric; Negative Wheezes or Rales
Gastrointestinal: Soft, Non Tender, Non Distended and Normal Bowel Sounds
Skin: Warm and Dry; Negative Rash or Jaundice
Objective Data
Lab Data
Lab Results
07/28/24 05:02
07/28/24 05:02
Estimated Creat Clear > 125 ml/min 07/28/24 05:02
Lactic Acid 1.9 mmol/L (0.7-2.0) 07/23/24 19:35
Total Bilirubin 0.9 mg/dl (0.2-1.3) 07/23/24 16:38
AST 25 U/L (17-59) 07/23/24 16:38
ALT 26 U/L (0-50) 07/23/24 16:38
Alkaline Phosphatase 471 U/L (38-126) H 07/23/24 16:38
Most recent labs reviewed.
Wound/abscess/other Cult Preliminary 07/28/24-09
Moderate Pseudomonas aeruginosa
Many Proteus species
Many Streptococcus agalactiae-Group B*
*Group B Streptococcus is susceptible to ampicillin,
penicillin, cefazolin, and vancomycin, but may be resistant
to clindamycin and/or erythromycin. If clindamycin or
erythromycin is being considered for treatment (i.e. patient
with penicillin allergy) please notify the Microbiology
Laboratory within 72 hours if antibiotic sensitivity testing
is needed.
Organism 1 Pseudomonas aeruginosa
1. Pseudomonas aeruginosa
M.I.C. RX
--------- ---
Aztreonam <=4 S
Cefepime <=2 S
Ceftazidime 4 S
Ciprofloxacin <=0.25 S
Meropenem <=1 S
Piperacillin/Tazobactam <=8 S
Tobramycin <=2 S
Micro Results:
07/23/24 19:36 Wound Culture - Preliminary
Leg - Left Pseudomonas aeruginosa
Proteus species
Streptococcus agalactiae
Gram Stain - Preliminary
07/23/24 19:35 Blood Culture - Preliminary
Blood/Venous No Growth in 4 days- Final report to follow
07/23/24 19:35 Blood Culture - Preliminary
Blood/Venous No Growth in 4 days- Final report to follow
07/23/24 23:23 MRSA Screen - Final
Nose No Methicillin Resistant Staphylococcus aureus isolated.
--- NOTE | 2024-07-28 14:24 | W.DCSUMMARY ---
Discharge Summary
Discharge Data
Date of Admission: 07/23/24
Date of Discharge: 07/28/24
-
Pending Results: No
Hospital Course
Hospital course
59 y/o M with Lymphedema with LLE wound/cellulitis on IV�Meropenem�per ID. Home IV antibiotics being setup and midline placed -
possible discharge on Wednesday. Also acute DVT � switched to�Xarelto as failed Eliquis (on Eliquis at home for Afib).�
Arrangement made for home infusion, patient will be discharged home today to complete antibiotic still August 04
During hospitalization patient was treated from the following
sepsis POA (tachycardia, leukocytosis)
Cellulitis LLE
Chronic LE Lymphedema
Chronic LE Wounds
- Failure of outpatient antibiotics/doxycycline.
- Continue IV Meropenem per ID; midline placed, home antibiotics being setup.
- Wound Care following; appreciate recs. Continue compression
Nonocclusive thrombus within the left femoral vein
- in setting of Eliquis; felt to be Eliquis failure. Switched to Xarelto
Persistent Atrial Fibrillation
- Stable. Continue current med regimen including Xarelto for stroke risk reduction.
- s/p cardioversion in April but now in recurrent/persistent A-Fib.
- OP plan is for Tikosyn initiation per EP (discussed with Dr. Reis via phone)
Chronic HFpEF
- Chronic lymphedema - but no other/new signs of decompensation.
- Continue usual BID Lasix dosing.
- Follow I/Os, daily weights, etc.
Benign Hypertension
- Stable. Continue usual home regimen.
Morbid Obesity due to excess calories
- Affects all aspects of care.
- Encourage healthy diet and activity as tolerates with goal of weight loss.
DVT Prophylaxis: Xarelto
Code Status: Full
Total time spent on today's encounter was 40 minutes which included time spent in counseling the patient/family regarding diagnosis and treatment plan as listed above, goals of care, and symptom management. Case was discussed with nursing staff,
specialists, and care coordinators/case management. All labs and imaging personally reviewed by me. Remainder the time spent in detailed review of previous records, lab data, imaging, and other medical provider documentation.
Anticipated Discharge: Today
Discharge Plan
-
Patient Disposition: Home with Home Care
Discharge Diagnosis/Procedures: sepsis POA.
Cellulitis LLE
Chronic LE Lymphedema
Chronic LE Wounds
Nonocclusive thrombus within the left femoral vein
Persistent Atrial Fibrillation
Diet: As tolerated and Regular
Other Services: VN
Activity Restrictions/Additional Instructions:
Wound Care Instructions
Le wounds-clean with saline or Vashe wound cleanser, Aquaphor ointment to dry intact skin Le's, Santyl prn necrotic tissue, adaptic, alginate, ABD pad, secure with Kerlix, change daily and as needed for drainage.
Miconazole powder to sacral/coccyx crease, affected areas twice a day.
Bilateral knee high Cory wraps as tolerated; re-wrap every morning.
Elevate heels off bed with pillows.
Pressure redistributing chair cushion(i.e. Bariatric air chair cushion).
Follow up at wound care center call for an appointment.
Referrals:
Miller Lu MD [Family Provider, Internal Medicine]
Prescriptions:
New
miconazole nitrate [Miconazorb AF] 2 % Powder
1 applic topical BID Qty: 85 0RF
white petrolatum [Hydrophor] 42 % Ointment
1 applic topical DAILY Qty: 454 0RF
meropenem 1 gram Recon Soln
1,000 mg IV Q8H 7 Days Qty: 21 0RF
Rx Instructions:
Continue meropenem 1g IV q8h (d4) through 08/04/24
Santyl 250 unit/gram Ointment
1 applic topical DAILYPRN PRN (Reason: necrotic tisse) Qty: 30 0RF
acetaminophen 325 mg Tablet
650 mg PO Q4HPRN PRN (Reason: Mild Pain / Temp > 101) Qty: 0 0RF
Xarelto DVT-PE Treat 30d Start 15 mg (42)- 20 mg (9) tablets,dose pack
See Rx Instructions .ROUTE .COMPLEX Qty: 51 0RF
Rx Instructions:
take 15 mg twice daily for 21 days then 20 mg daily afterword
Continued
clonidine HCl 0.1 MG tablet
0.1 mg PO BID Qty: 60 0RF
ondansetron HCl 4 mg tablet
4 mg PO BID PRN (Reason: nausea/vomiting)
cyanocobalamin (vitamin B-12) [Vitamin B-12] 1,000 mcg Tablet
1,000 mcg PO DAILY
acetaminophen 500 mg Tablet
1,500 mg PO HS
furosemide 40 mg Tablet
40 mg PO BID AT 0800,1600 Qty: 60 0RF
dapagliflozin propanediol [Farxiga] 10 mg Tablet
10 mg PO DAILY Qty: 30 0RF
carvedilol 25 mg Tablet
25 mg PO BID Qty: 60 0RF
diltiazem HCl 120 mg Capsule,Extended Release 24hr
120 mg PO DAILY Qty: 120 0RF
melatonin 10 mg Tablet
10 mg PO HS Qty: 0 0RF
omeprazole 20 mg Capsule,Delayed Release(Dr/Ec)
20 mg PO DAILY
albuterol sulfate 90 mcg/actuation Hfa Aerosol Inhaler
2 puff INHALATION Q6H PRN (Reason: SOB)
fluticasone propionate 110 mcg/actuation Hfa Aerosol Inhaler
2 puff INHALATION BID
Discontinued
Eliquis 5 mg Tablet
5 mg PO BID Qty: 60 0RF
Discharge Orders:
Discharge Patient (As Directed); Ordered 07/28/24
Ordered By: Ada Gonzalez
Discharge Date and Time
Print Language: CENTRAL AFRICAN
--- NOTE | 2024-07-28 14:45 | CM ---
Chart reviewed and case fitter met with patient and spouse, [facility] have provided teaching for patient today, and script along with Midline information has been sent to [facility], since patient does not want nursing to go to his home, plan is
for patient to return to home today with spouse and patient will have a telehealth visit tonight with infusion company. Then patient will go to outpatient infusion room for further teaching and management. This has been arranged with infusion
company and patient and times have been arranged. Medication will be delivered at 7pm today.
Plan; Home today with [facility] infusion.
[2024-07-28 15:00] VITALS: BP 132/82
== END 2024-07-28 17:28 | disposition home or self-care (01) | DRG 872 ==
LOC: 4 WEST ACU 22:29
PROVIDERS: Internal Medicine; Physician Assistant; ADMITTING PHYSICIAN Hospitalist; ATTENDING PHYSICIAN General Practice; EMERGENCY PHYSICIAN Student in an Organized Health Care Education/Training Program; FAMILY PHYSICIAN Internal Medicine; OTHER PHYSICIAN Internal Medicine Infectious Disease
DX: A41.52 Sepsis due to Pseudomonas (principal); L03.116 Cellulitis of left lower limb; I50.32 Chronic diastolic (congestive) heart failure; I48.19 Other persistent atrial fibrillation; Z68.43 Body mass index [BMI] 50.0-59.9, adult; I82.412 Acute embolism and thrombosis of left femoral vein; E66.813 Obesity, class 3; I11.0 Hypertensive heart disease with heart failure; K21.9 Gastro-esophageal reflux disease without esophagitis; I89.0 Lymphedema, not elsewhere classified; E87.6 Hypokalemia; Z79.84 Long term (current) use of oral hypoglycemic drugs; Z79.01 Long term (current) use of anticoagulants; Z79.51 Long term (current) use of inhaled steroids; Z88.0 Allergy status to penicillin; Z88.1 Allergy status to other antibiotic agents; Z91.040 Latex allergy status
CPT/HCPCS: 80048; 80053; 83036; 83605; 85025; 85027; 87040; 87070; 87077; 87147; 87186; 87205; 93005; 93970; 96365; 96366; 99285; J2185